=== PATIENT | female | born 1945 | race Caucasian/White ===

== ENCOUNTER 2019-05-03 18:01 | Inpatient (IN) | payer MEDICARE, OTHER ==
[~2019-05-03] VITALS: Ht 152.4 cm; Wt 102.1 kg
[2019-05-03] MEDS ORDERED: OXYB5TAB16 PO (18:18)
[2019-05-03] MEDS ORDERED: SIMV-46 PO (18:18)
[2019-05-03] MEDS ORDERED: METO-357 PO (18:18)
[2019-05-03] MEDS ORDERED: ARIP5TAB10 PO (18:18)
[2019-05-03] MEDS ORDERED: ROPI1TAB4 PO (18:18)
[2019-05-03] MEDS ORDERED: QUET50TA PO (18:18)
[2019-05-03] MEDS ORDERED: DULO30CA2 PO (18:18)
[2019-05-03] MEDS ORDERED: LISI-603 PO (18:18)
[2019-05-03] MEDS ORDERED: FLUT16SP NS (18:18)
[2019-05-03] MEDS ORDERED: HYDR25TA4 PO (18:18)
[2019-05-03] MEDS ORDERED: DIVA250T47 PO (18:18)
--- NOTE | 2019-05-03 18:26 | NUR ---
PATIENT WAS SEEN BY MD. SHE IS SITTING UP EATING DINNER. SUICIDE PRECAUTIONS INITIATED.
--- NOTE | 2019-05-03 19:14 | NUR ---
HAND OFF REPORT GIVEN TO CLIARE DUQUE
[2019-05-03 20:02] VITALS: BP 161/81
--- NOTE | 2019-05-03 20:02 | NUR ---
TRANSPORTED TO MHU VIA GURNY WITH NO DISTRESS NOTED.
[2019-05-03] MEDS ORDERED: MAG HYDROX/AL HYDROX/SIMETH 30 ML LIQUID UDC PO PRN (20:15)
[2019-05-03] MEDS ORDERED: MAGNESIUM HYDROXIDE 30 ML LIQUID UDC PO PRN (20:15)
[2019-05-03] MEDS: ZOLPIDEM 5 MG TABLET PO PRN (21:19)
--- NOTE | 2019-05-03 21:30 | NUR ---
GPS: Admitted to unit earlier a 73 yr.old female who was medically cleared in our E.R. in stable condition. Pt.is on a 72 hour hold for DTS. Pt.ingested 30 pills,cut her left wrist superficially called suicide hotline ,per hold. Pt.is alert/oriented x3,sad,depressed,feels hopeless but denies wanting to hurt self again. Contracts for safety while in the hosp. Pt. states she has multiple inpatient psych.admissions before. Unable to identify stressors when asked. Skin assessment/personal belongings list completed. Pt's advisement/pt's handbook given. Unit rules explained. /IGNACIO Srinivasan made aware of pt's admission to the unit. Safety emphasized.Assisted in the shower room and given Ambien 5mg for sleep as requested by pt. Meghan Hale(sister) informed of pt.s admission to the unit/hosp. Will continue to monitor behavior.
[2019-05-04 07:30] VITALS: BP 205/98
[2019-05-04] MEDS: LISINOPRIL 20 MG TABLET PO SCH (07:40)
[2019-05-04] MEDS: METOPROLOL SUCCINATE XL 50 MG TAB.SR.24H PO SCH (07:41)
[2019-05-04] MEDS: ropiniROLE 1 MG TABLET PO SCH ×3 (09:32→17:00)
[2019-05-04] MEDS: FLUTICASONE PROP NASAL SPRAY 16 GM BOTTLE NS SCH (09:33)
[2019-05-04] MEDS: HYDROCHLOROTHIAZIDE 25 MG TABLET PO SCH (09:33)
[2019-05-04] MEDS: OXYBUTYNIN CHLORIDE 5 MG TABLET PO SCH ×2 (09:33→17:00)
[2019-05-04] MEDS: ACETAMINOPHEN 325 MG TABLET PO PRN (10:10)
--- NOTE | 2019-05-04 10:40 | NUR ---
Social Work Note/Initial Discharge Planning: Patient currently resides at [address] [place] [address]; ([phone]) alone. Patient would like to be discharged home upon discharge. SW will work with the pt and the MD regarding appropriate discharge planning. log chain worker will form a safe and proper discharge.
--- NOTE | 2019-05-04 10:48 | NUR ---
Social Work Note/Family Contact: liner worker spoke with patients sister Geoffrey ([phone]) who stated that she is the POA. Per Geoffrey, she faxed documentation and this press writer filed documentation. liner worker discussed patients discharge plan and treatment plan. Per Geoffrey, she is unsure if she wants patient to go back home. This press writer will work with the doctor to provide a safe and proper discharge plan for patient.
--- NOTE | 2019-05-04 11:02 | NUR ---
Social Work Note/Substance Abuse Intervention: Patient was provided with a brief substance abuse intervention and referred to [facility] , [facility] , and [facility] .
--- NOTE | 2019-05-04 11:57 | NUR ---
Gps/Candle Extrusion Machine Operator- Dr Cao in to see , was informed patient had elevated blood pressure, latest checked was 179/86 HR 72, and had complained of headache, prn was given. Will review medications .
[2019-05-04 15:00] VITALS: BP 154/59
--- NOTE | 2019-05-04 15:35 | NUR ---
Gps/Alarm Signaler- Ambulates around with front wheel walker , claimed she uses front wheel walker at home. Noted patient ambulates around tends to lean forward when walker. Claimed adequate relief from h/a
--- NOTE | 2019-05-04 15:50 | NUR ---
Gps/Envelope Stamping Machine Operator- Called rapid response ,patient found in the activity room by INTERMODAL TRUCK DRIVER hunched back leaning on her front wheel walker, claimed she's very dizziy,unable to walk, assisted to concepcion-chair. B/P 166/86-HR 78, temp. 98.5, resp. 18 ,denies pain. Blood sugar was checked 84. Called [facility], Dr Cao was paged, awaiting for return call. Rapid Response team responded. Kept patient by the Nurses station for close monitoring.
[2019-05-04 16:00] VITALS: BP 166/86
--- NOTE | 2019-05-04 16:15 | NUR ---
Gps/Nurse Office- As per Rapid reponse EKG was ordered
--- NOTE | 2019-05-04 16:24 | NUR ---
Gps/Fence Builder- Dr Cao returned call, informed of the dizziiness episode, informed of blood pressure and rest of her vital signs, no orders received, just observed and monitor patient for now.
--- NOTE | 2019-05-04 16:34 | NUR ---
Gps/Boiler Operators Supervisor- Dr Rivera was in to see patient was informed of the Rapid response call .
[2019-05-04 17:31] VITALS: BP 142/81
[2019-05-04] MEDS: DULOXETINE 30 MG CAPSULE.DR PO SCH (19:35)
[2019-05-04 20:08] VITALS: BP 125/80
--- NOTE | 2019-05-04 20:10 | NUR ---
Received patient in bed, calm and cooperative, patient was having a conversation with peer. Patient denies SI/HI/AVH. Med compliant, no sign or symptom of resp. distress. no indication of pain or discomfort.
[2019-05-04] MEDS: SIMVASTATIN 20 MG TABLET PO SCH (20:22)
[2019-05-04] MEDS: DIVALPROEX ER 250 MG TAB.SR.24H PO SCH (20:22)
[2019-05-04] MEDS: ARIPIPRAZOLE 5 MG TABLET PO SCH (20:22)
[2019-05-04] MEDS ORDERED: DIVALPROEX ER 500 MG TAB.SR.24H PO SCH (21:00)
[2019-05-04] MEDS ORDERED: DIVALPROEX ER 250 MG TAB.SR.24H PO SCH ×2 (21:00)
--- NOTE | 2019-05-05 00:35 | NUR ---
PATIENT REQUESTED SLEEPING MEDS. GAVE AMBIEN 5 MG. PRN FOR INSOMNIA. WILL REASSESS PATIENT.
[2019-05-05] MEDS: ZOLPIDEM 5 MG TABLET PO PRN ×2 (00:37→23:09)
[2019-05-05] MEDS: ACETAMINOPHEN 325 MG TABLET PO PRN ×2 (02:11→23:09)
[2019-05-05 07:30] VITALS: BP 141/58
[2019-05-05] MEDS: HYDROCHLOROTHIAZIDE 25 MG TABLET PO SCH (08:30)
[2019-05-05] MEDS: DULOXETINE 30 MG CAPSULE.DR PO SCH (08:30)
[2019-05-05] MEDS: ropiniROLE 1 MG TABLET PO SCH ×3 (08:30→16:53)
[2019-05-05] MEDS: FLUTICASONE PROP NASAL SPRAY 16 GM BOTTLE NS SCH (08:31)
[2019-05-05] MEDS: LISINOPRIL 20 MG TABLET PO SCH (08:31)
[2019-05-05] MEDS: OXYBUTYNIN CHLORIDE 5 MG TABLET PO SCH ×2 (08:32→16:53)
--- NOTE | 2019-05-05 08:38 | NUR ---
Social Work Note/Family Contact: This sba underwriter received a phone call from David ([id number] to patient) and stated that he faxed the POA documentation, this sba underwriter called to confirm that it has been received.
[2019-05-05] MEDS: METOPROLOL SUCCINATE XL 50 MG TAB.SR.24H PO SCH (09:24)
--- NOTE | 2019-05-05 15:03 | NUR ---
Gps/Orthopedic Shoes Salesperson- Dr Cao in to see patient reviewed vital signs, and medications . No new orders. Showered self after set up.Deneis any discomfort, no dizziness noted.
[2019-05-05 16:55] VITALS: BP 143/68
--- NOTE | 2019-05-05 17:47 | NUR ---
Gps/Programmer Analyst- Patient was able to talk to her Sister Corie . Ambulates to the bathroom with front wheel walker , contienent of bowels and bladder. Redness to coccygeal area as well as abdominal folds. Z-guard cream was ordered. Kept skin clean and dry.Encouraged good hygiene
[2019-05-05] MEDS: DIVALPROEX ER 250 MG TAB.SR.24H PO SCH (20:17)
[2019-05-05] MEDS: ARIPIPRAZOLE 5 MG TABLET PO SCH (20:18)
[2019-05-05] MEDS: Z GUARD REMEDY PASTE 57 GM TUBE TOP SCH (20:18)
[2019-05-05] MEDS: SIMVASTATIN 20 MG TABLET PO SCH (20:18)
[2019-05-05 20:34] VITALS: BP 157/79
--- NOTE | 2019-05-05 22:20 | NUR ---
received to care, lying in bed initially, pleasant upon approach. denies SI, or any desire to harm self. compliant with medications and staff direction. she watched tv in the activity room for a while. no interactions noted with peers. as of 2199, she is lying in bed. no distress noted. willl continue to monitor closely.
--- NOTE | 2019-05-05 23:09 | NUR ---
PRN ambien, given at this time, for insomnia.
--- NOTE | 2019-05-05 23:50 | NUR ---
appears to be asleep. no distress noted.
--- NOTE | 2019-05-06 06:31 | NUR ---
slept 7.25 hours total. continues to sleep. no distress noted.
[2019-05-06 07:46] VITALS: BP 136/58
[2019-05-06] MEDS: FLUTICASONE PROP NASAL SPRAY 16 GM BOTTLE NS SCH (08:24)
[2019-05-06] MEDS: ropiniROLE 1 MG TABLET PO SCH ×3 (08:25→16:24)
[2019-05-06] MEDS: DULOXETINE 30 MG CAPSULE.DR PO SCH (08:25)
[2019-05-06] MEDS: METOPROLOL SUCCINATE XL 50 MG TAB.SR.24H PO SCH (08:25)
[2019-05-06] MEDS: HYDROCHLOROTHIAZIDE 25 MG TABLET PO SCH (08:26)
[2019-05-06] MEDS: OXYBUTYNIN CHLORIDE 5 MG TABLET PO SCH ×2 (08:27→16:24)
[2019-05-06] MEDS: LISINOPRIL 20 MG TABLET PO SCH (08:27)
[2019-05-06] MEDS: Z GUARD REMEDY PASTE 57 GM TUBE TOP SCH ×2 (08:27→20:43)
[2019-05-06 16:50] VITALS: BP 142/54
[2019-05-06] MEDS: ACETAMINOPHEN 325 MG TABLET PO PRN (18:40)
[2019-05-06] MEDS: CLONAZEPAM 0.5 MG TABLET PO PRN (18:40)
--- NOTE | 2019-05-06 18:40 | NUR ---
PT NOTED TO BE AMBULATING UNIT HALLWAY WITH FWW, THEN STATING SHE WAS HAVING VERTIGO EPISODES AND HEADACHES. STAFF ASSISTED TO FLOOR, THEN ASSISTED TO CHAIR. V/S ARE FOLLOWS: 176/62, 114, 98.3, 20, 96%. WANDY Oliva NP CALLED AND NOTIFIED. ORDERED FOR LABS AND MECLIZINE, BUT NO ANTIHYPERTENSIVE.
--- NOTE | 2019-05-06 18:59 | NUR ---
GPS: Nursing Notes: B/P Recheck: Patient B/P at this time: 158/105, 104, Meclizine medication pending verification from pharmacy, to endorse to incoming shift, continue to monitor patient, continue with treatment plan.
[2019-05-06 19:25] LABS: BASOPHILS # (AUTO) 0.1 K/uL (0.0-8.0); BASOPHILS % (AUTO) 0.7 % (0.0-2.0); EOSINOPHILS # (AUTO) 0.3 K/uL (0.0-0.7); EOSINOPHILS % (AUTO) 2.5 % (0.0-7.0); HEMATOCRIT 33.9 % (31.2-41.9); HEMOGLOBIN 11.2 g/dL (10.9-14.3); LYMPHOCYTES # (AUTO) 2.1 K/uL (20.0-40.0); LYMPHOCYTES % (AUTO) 20.1 % (20.5-51.5); MEAN CORPUSCULAR HEMOGLOBIN 28.7 uug (24.7-32.8); MEAN CORPUSCULAR HGB CONC 33 g/dL (32.3-35.6); MEAN CORPUSCULAR VOLUME 86.6 fL (75.5-95.3); MONOCYTES # (AUTO) 0.6 K/uL (2.0-10.0); MONOCYTES % (AUTO) 5.9 % (0.0-11.0); NEUTROPHILS # (AUTO) 7.4 K/uL (1.8-8.9); NEUTROPHILS % (AUTO) 70.8 % (38.5-71.5); PLATELET COUNT (AUTO) 161 K/uL (179-408); RED BLOOD CELL COUNT(AUTO) 3.91 MIL/uL (3.63-4.92); WHITE BLOOD COUNT (AUTO) 10.4 K/uL (3.8-11.8)
[2019-05-06 19:31] LABS: CARBON DIOXIDE 22 mmol/L (21-32); CHLORIDE 99 mmol/L (98-107); CREATININE 1.7 mg/dL (0.6-1.3); GLUCOSE 155 mg/dL (74-106); POTASSIUM 4.3 mmol/L (3.5-5.1); UREA NITROGEN, BLOOD 46 mg/dL (7-18)
[2019-05-06 19:54] VITALS: BP 138/77
[2019-05-06] MEDS ORDERED: MECLIZINE HCL 25 MG TABLET ONE (20:00)
[2019-05-06] MEDS: MECLIZINE HCL 25 MG TABLET PO SCH (20:01)
[2019-05-06] MEDS: SIMVASTATIN 20 MG TABLET PO SCH (20:02)
[2019-05-06] MEDS: ARIPIPRAZOLE 5 MG TABLET PO SCH (20:02)
[2019-05-06] MEDS: DIVALPROEX ER 250 MG TAB.SR.24H PO SCH (20:03)
--- NOTE | 2019-05-07 05:45 | NUR ---
GPS: Remain calm and cooperative. no agitation noted. no c/o dizziness through the night. slept 10 hours total. continues to sleep. no distress noted.
[2019-05-07 07:37] VITALS: BP 183/71
[2019-05-07] MEDS: ACETAMINOPHEN 325 MG TABLET PO PRN ×2 (07:38→20:21)
[2019-05-07] MEDS: CLONAZEPAM 0.5 MG TABLET PO PRN ×2 (07:38→12:37)
[2019-05-07] MEDS: FLUTICASONE PROP NASAL SPRAY 16 GM BOTTLE NS SCH (08:21)
[2019-05-07] MEDS: METOPROLOL SUCCINATE XL 50 MG TAB.SR.24H PO SCH (08:22)
[2019-05-07] MEDS: HYDROCHLOROTHIAZIDE 25 MG TABLET PO SCH (08:22)
[2019-05-07] MEDS: DULOXETINE 30 MG CAPSULE.DR PO SCH (08:22)
[2019-05-07] MEDS: OXYBUTYNIN CHLORIDE 5 MG TABLET PO SCH ×2 (08:22→16:10)
[2019-05-07] MEDS: ropiniROLE 1 MG TABLET PO SCH ×3 (08:22→16:10)
[2019-05-07] MEDS: LISINOPRIL 20 MG TABLET PO SCH (08:23)
[2019-05-07] MEDS: Z GUARD REMEDY PASTE 57 GM TUBE TOP SCH ×2 (08:24→20:21)
[2019-05-07] MEDS: MECLIZINE HCL 25 MG TABLET PO SCH (10:13)
[2019-05-07 10:50] VITALS: BP 169/90
[2019-05-07] MEDS: CLONIDINE HCL 0.1 MG TABLET PO PRN (12:44)
[2019-05-07 16:39] VITALS: BP 154/92
[2019-05-07 19:50] VITALS: BP 179/87
[2019-05-07] MEDS: SIMVASTATIN 20 MG TABLET PO SCH (20:15)
[2019-05-07] MEDS: DIVALPROEX ER 250 MG TAB.SR.24H PO SCH (20:15)
[2019-05-07] MEDS: ARIPIPRAZOLE 5 MG TABLET PO SCH (20:15)
[2019-05-07 20:22] VITALS: BP 140/68
[2019-05-08 00:17] LABS: *BILIRUBIN,URIN NEGATIVE (NEGATIVE); *CLARITY,URINE CLEAR (CLEAR); *COLOR,URINE YELLOW (YELLOW); *KETONES,URINE NEGATIVE (NEGATIVE); *UROBILINOGEN,URINE 0.2 E.U./dl (NORMAL); LEUKOCYTE ESTERASE ,URINE TRACE (NEGATIVE); NITRITE, URINE NEGATIVE (NEGATIVE); UGLUCOSE NEGATIVE (NEGATIVE)
[2019-05-08 00:23] LABS: *BLOOD, URINE TRACE (NEGATIVE)
[2019-05-08 00:48] LABS: BACTERIA,URINE MANY /HPF (NONE SEEN); RBC,URINE 0-3 /HPF (0-3); SQUAMOUS EPITHELIAL CELL,UR MODERATE /HPF (NONE SEEN); WBC,URINE 0-3 /HPF (0-3)
[2019-05-08] MEDS: ACETAMINOPHEN 325 MG TABLET PO PRN (05:29)
[2019-05-08 07:30] VITALS: BP 141/77
[2019-05-08] MEDS: METOPROLOL SUCCINATE XL 50 MG TAB.SR.24H PO SCH (08:45)
[2019-05-08] MEDS: MECLIZINE HCL 25 MG TABLET PO SCH (08:45)
[2019-05-08] MEDS: FLUTICASONE PROP NASAL SPRAY 16 GM BOTTLE NS SCH (08:45)
[2019-05-08] MEDS: CEphaleXIN 500 MG CAPSULE PO SCH ×2 (08:46→20:23)
[2019-05-08] MEDS: ropiniROLE 1 MG TABLET PO SCH ×3 (08:46→16:38)
[2019-05-08] MEDS: OXYBUTYNIN CHLORIDE 5 MG TABLET PO SCH ×2 (08:46→16:38)
[2019-05-08] MEDS: DULOXETINE 30 MG CAPSULE.DR PO SCH (08:46)
[2019-05-08] MEDS: HYDROCHLOROTHIAZIDE 25 MG TABLET PO SCH (08:47)
[2019-05-08] MEDS: LISINOPRIL 20 MG TABLET PO SCH (08:48)
[2019-05-08] MEDS: Z GUARD REMEDY PASTE 57 GM TUBE TOP SCH ×2 (08:55→20:35)
--- NOTE | 2019-05-08 14:49 | NUR ---
Social Work Note/UR Note: plastic worker faxed Cyndie (F: [phone]) (P: [phone]) H & P psychiatric notes and progress notes and medication.
[2019-05-08 16:00] VITALS: BP 145/83
[2019-05-08 20:19] VITALS: BP 148/80
[2019-05-08] MEDS: ARIPIPRAZOLE 5 MG TABLET PO SCH (20:23)
[2019-05-08] MEDS: SIMVASTATIN 20 MG TABLET PO SCH (20:23)
[2019-05-08] MEDS: DIVALPROEX ER 250 MG TAB.SR.24H PO SCH (20:24)
[2019-05-09] MEDS: ZOLPIDEM 5 MG TABLET PO PRN ×2 (00:19→20:58)
[2019-05-09 00:38] LABS: *BILIRUBIN,URIN NEGATIVE (NEGATIVE); *BLOOD, URINE NEGATIVE (NEGATIVE); *CLARITY,URINE CLEAR (CLEAR); *KETONES,URINE NEGATIVE (NEGATIVE); *UROBILINOGEN,URINE 0.2 E.U./dl (NORMAL); LEUKOCYTE ESTERASE ,URINE NEGATIVE (NEGATIVE); NITRITE, URINE NEGATIVE (NEGATIVE); PH,URINE 6.5 (5.0-8.0); UGLUCOSE NEGATIVE (NEGATIVE)
[2019-05-09 00:42] LABS: *COLOR,URINE STRAW (YELLOW)
[2019-05-09 00:53] LABS: *CREATININE,URINE 19.6 mg/dL (30-125); *URINE TOTAL PROTEIN RANDOM 8.2 mg/dL (<150/24HR)
[2019-05-09 06:33] LABS: BASOPHILS # (AUTO) 0.1 K/uL (0.0-8.0); BASOPHILS % (AUTO) 0.9 % (0.0-2.0); EOSINOPHILS # (AUTO) 0.3 K/uL (0.0-0.7); HEMATOCRIT 37.9 % (31.2-41.9); HEMOGLOBIN 12.3 g/dL (10.9-14.3); LYMPHOCYTES # (AUTO) 2.2 K/uL (20.0-40.0); LYMPHOCYTES % (AUTO) 23.3 % (20.5-51.5); MEAN CORPUSCULAR HEMOGLOBIN 28.8 uug (24.7-32.8); MEAN CORPUSCULAR HGB CONC 33 g/dL (32.3-35.6); MEAN CORPUSCULAR VOLUME 88.7 fL (75.5-95.3); MONOCYTES # (AUTO) 0.5 K/uL (2.0-10.0); MONOCYTES % (AUTO) 5.7 % (0.0-11.0); NEUTROPHILS # (AUTO) 6.3 K/uL (1.8-8.9); NEUTROPHILS % (AUTO) 67.1 % (38.5-71.5); PLATELET COUNT (AUTO) 158 K/uL (179-408); RED BLOOD CELL COUNT(AUTO) 4.27 MIL/uL (3.63-4.92); WHITE BLOOD COUNT (AUTO) 9.3 K/uL (3.8-11.8)
[2019-05-09 06:54] LABS: ALANINE AMINOTRANSFERASE 21 U/L (14-59); ALKALINE PHOSPHATASE 93 U/L (50-136); ASPARTATE AMINOTRANSFERASE 10 U/L (15-37); BILIRUBIN,TOTAL 0.3 mg/dL (0.2-1.0); CARBON DIOXIDE 22 mmol/L (21-32); CHLORIDE 99 mmol/L (98-107); CREATINE KINASE, TOTAL 64 U/L (26-192); CREATININE 1.4 mg/dL (0.6-1.3); GLUCOSE 97 mg/dL (74-106); MAGNESIUM 1.9 mg/dL (1.8-2.4); PHOSPHOROUS 3.5 mg/dL (2.5-4.9); POTASSIUM 4.6 mmol/L (3.5-5.1); TOTAL PROTEIN, SERUM 8.3 g/dL (6.4-8.2); UREA NITROGEN, BLOOD 44 mg/dL (7-18)
[2019-05-09 07:30] VITALS: BP 142/71
[2019-05-09] MEDS: Z GUARD REMEDY PASTE 57 GM TUBE TOP SCH ×2 (08:11→20:04)
[2019-05-09] MEDS: CEphaleXIN 500 MG CAPSULE PO SCH ×2 (08:12→20:03)
[2019-05-09] MEDS: MECLIZINE HCL 25 MG TABLET PO SCH (08:12)
[2019-05-09] MEDS: DULOXETINE 30 MG CAPSULE.DR PO SCH (08:12)
[2019-05-09] MEDS: ropiniROLE 1 MG TABLET PO SCH ×3 (08:12→16:36)
[2019-05-09] MEDS: OXYBUTYNIN CHLORIDE 5 MG TABLET PO SCH ×2 (08:12→16:36)
[2019-05-09] MEDS: FLUTICASONE PROP NASAL SPRAY 16 GM BOTTLE NS SCH (08:12)
[2019-05-09] MEDS: METOPROLOL SUCCINATE XL 50 MG TAB.SR.24H PO SCH (08:13)
[2019-05-09] MEDS: HYDROCHLOROTHIAZIDE 25 MG TABLET PO SCH (08:13)
[2019-05-09] MEDS: LISINOPRIL 20 MG TABLET PO SCH (08:13)
--- NOTE | 2019-05-09 10:18 | NUR ---
Social Work Note/Family Contact: automotive worker spoke with patients sister Geoffrey ([phone]) who stated that she is unable to provided transportation for patient because she lives far. Geoffrey, is aware of patient discharge planning.
--- NOTE | 2019-05-09 10:21 | NUR ---
Social Work Note/Coordination of Care: workers compensation consultant called 's office to schedule an appointment for patient. Per Niki, she scheduled it for May 11, 2019 at 3PM. This principal technical writer faxed ([phone]) patients H & P psychiatric notes and progress notes. workers compensation consultant also called patients psychiatrist office to make an appointment with on May 18 at 9AM. workers compensation consultant spoke with Layla who arranged appointment. workers compensation consultant faxed to Layla ([phone]) patients H & P psychiatric notes and progress notes.
--- NOTE | 2019-05-09 10:44 | NUR ---
Social Work Note/Coordination of Care: packing floor worker faxed patients clinicals to Gaby ([phone]) from [facility]. This food writer faxed patients H & P psychiatric notes and progress notes and medication.
--- NOTE | 2019-05-09 13:27 | NUR ---
Social Work Note/PC Hearing Notification: tnt powder worker contacted patients sister Geoffrey, ([phone]) and notified patients probable cause of hearing today.
[2019-05-09 15:41] VITALS: BP 149/55
--- NOTE | 2019-05-09 16:04 | NUR ---
Social Work Note/Individual Therapy: geriatric social worker met with patient for brief counseling. Patient was cooperative and pleasant upon approach. Patient stated that she is excited to go home and denies SI. geriatric social worker provided resources.
--- NOTE | 2019-05-09 16:20 | NUR ---
Social Work Note/Coordination of Care: boom stick worker spoke with Aleida from intake department from [address] [place] [address]; ([phone]) and scheduled that a nurse will evaluate patient on 05/12/2019. This screen writer also faxed ([phone]) psychiatric notes and progress notes.
[2019-05-09 20:00] VITALS: BP 115/45
[2019-05-09] MEDS: SIMVASTATIN 20 MG TABLET PO SCH (20:03)
[2019-05-09] MEDS: ARIPIPRAZOLE 5 MG TABLET PO SCH (20:03)
[2019-05-09] MEDS: CLONIDINE HCL 0.1 MG TABLET PO PRN (20:03)
[2019-05-09] MEDS: DIVALPROEX ER 250 MG TAB.SR.24H PO SCH (20:04)
[2019-05-09] MEDS: CLONAZEPAM 0.5 MG TABLET PO PRN (20:04)
[2019-05-10] MEDS: ACETAMINOPHEN 325 MG TABLET PO PRN (01:48)
[2019-05-10 07:30] VITALS: BP 189/71
--- NOTE | 2019-05-10 08:04 | NUR ---
Social Work Note/Firearms Report: Solar Project Manager completed and submitted a [employer] firearms report for 5150 grave disability certification. A copy of report has been placed in patient chart.
--- NOTE | 2019-05-10 08:12 | NUR ---
Social Work Note/Discharge: Patient will be discharged home to [address] [place] [address]; ([phone]) via transportation provided by [facility]; ([phone]) at 12PM. Patients sister Carol, ([phone]) is aware and agreeable to patients discharge. Upon discharge, patient appear to be calm, cooperative and happy to be going home. Patient presents alert and oriented x3. Patient denies suicidal and homicidal ideation. Patient will follow up with Dr. Riggs (line puller) at [place] [address]; ([phone]) on May 11 at 3PM and patient will be following up with Dr. Scot Oliver at [address] [place] [address], [facility]; ([phone]) on May 18 at 9AM and patient will discuss smoking cessation and address substance abuse dependency. contact worker spoke to Aleida ([phone]) scheduled [place] [address]; ([phone]) and a nurse will evaluate patient on 05/12/2019. Patient was provided with a brief substance abuse intervention and referred to [facility] , [facility] , and [facility] . Patient was provided with outpatient mental health resources to [facility] Crisis Line , and the National Suicide Prevention Lifeline . Patient presented with euthymic mood and congruent affect. Addendum: 05/10/19 at 0816 by TRACIE KNOTT Patient will be discharged home to [address] [place] [address], [place] [address]; ([phone]) via transportation provided by [facility]; ([phone]) at 12PM.
[2019-05-10] MEDS: FLUTICASONE PROP NASAL SPRAY 16 GM BOTTLE NS SCH (08:16)
[2019-05-10] MEDS: CEphaleXIN 500 MG CAPSULE PO SCH (08:17)
[2019-05-10] MEDS: LISINOPRIL 20 MG TABLET PO SCH (08:17)
[2019-05-10] MEDS: DULOXETINE 30 MG CAPSULE.DR PO SCH (08:17)
[2019-05-10] MEDS: ropiniROLE 1 MG TABLET PO SCH ×2 (08:17→12:17)
[2019-05-10] MEDS: MECLIZINE HCL 25 MG TABLET PO SCH (08:18)
[2019-05-10] MEDS: HYDROCHLOROTHIAZIDE 25 MG TABLET PO SCH (08:18)
[2019-05-10 08:19] VITALS: BP 189/71
[2019-05-10] MEDS: Z GUARD REMEDY PASTE 57 GM TUBE TOP SCH (08:19)
[2019-05-10] MEDS: METOPROLOL SUCCINATE XL 50 MG TAB.SR.24H PO SCH (08:19)
[2019-05-10] MEDS: OXYBUTYNIN CHLORIDE 5 MG TABLET PO SCH (08:19)
--- NOTE | 2019-05-10 13:22 | NUR ---
Patient d/c d home via transportation service. Patient awake and alert, verbalized understanding of discharge instructions and follow up appointments. No distress noted.
== END 2019-05-10 12:45 | disposition home health service (06) | DRG 885 ==
LOC: ER 18:01 → GPS 19:52
PROVIDERS: ADMIT Psychiatry & Neurology Psychiatry
DX: F31.5 Bipolar disorder, current episode depressed, severe, with psychotic features (principal); N17.9 Acute kidney failure, unspecified; N18.9 Chronic kidney disease, unspecified; N39.0 Urinary tract infection, site not specified; E87.1 Hypo-osmolality and hyponatremia; K50.90 Crohn's disease, unspecified, without complications; T42.8X2D Poisoning by antiparkinsonism drugs and other central muscle-tone depressants, intentional self-harm, subsequent encounter; Z91.030 Bee allergy status; G43.909 Migraine, unspecified, not intractable, without status migrainosus; I12.9 Hypertensive chronic kidney disease with stage 1 through stage 4 chronic kidney disease, or unspecified chronic kidney disease; I71.9 Aortic aneurysm of unspecified site, without rupture; G47.00 Insomnia, unspecified; F12.10 Cannabis abuse, uncomplicated; E66.01 Morbid (severe) obesity due to excess calories; Z87.442 Personal history of urinary calculi; Z79.899 Other long term (current) drug therapy; N27.0 Small kidney, unilateral
CPT/HCPCS: 36415; 83735; 83970; 84100; 84156; 84300; 85025; 87086; 93005; 93307; 93880; A4663; J3535; J8597

== ENCOUNTER 2020-01-01 20:34 | Inpatient (IN) | payer MEDICARE, OTHER ==
[~2020-01-01] VITALS: Ht 152.4 cm; Wt 104.8 kg
[~2020-01-01 20:34] MED LIST: FLUT16SP NS; HYDR25TA4 PO; LISI-603 PO; METO-357 PO; OXYB5TAB16 PO; ROPI1TAB6 PO; SIMV-46 PO
--- NOTE | 2020-01-01 20:45 | NUR ---
Sayra SIMMS by private transporter from [facility] ER on 5150 hold for DTS. Patient upon arrival A/Ox3. Denies SI at this time. No distress noted.
[2020-01-01] MEDS ORDERED: DIVA500T54 PO (20:51)
[2020-01-01] MEDS ORDERED: ARIP5TAB59 PO (20:51)
[2020-01-01] MEDS ORDERED: DICL100G16 TP (20:51)
[2020-01-01] MEDS ORDERED: QUET200T PO (20:51)
[2020-01-01] MEDS ORDERED: EPIN0.3P3 IJ (20:51)
[2020-01-01] MEDS ORDERED: OLOP5DRO EACHEYE (20:51)
--- NOTE | 2020-01-01 21:18 | NUR ---
Medically cleared by Dr Whitaker.
--- NOTE | 2020-01-01 22:20 | NUR ---
Transfered to MHU via wheelchair with no distress noted.
[2020-01-01 22:30] VITALS: BP 143/64
[2020-01-01] MEDS ORDERED: MAGNESIUM HYDROXIDE 30 ML LIQUID UDC PO PRN (23:00)
[2020-01-01] MEDS ORDERED: MAG HYDROX/AL HYDROX/SIMETH 30 ML LIQUID UDC PO PRN (23:00)
[2020-01-01] MEDS ORDERED: BLOOD SUGAR DIAGNOSTIC 1 EACH STRIP VI ONE (23:00)
[2020-01-01] MEDS ORDERED: CLONAZEPAM 0.5 MG TABLET PO SCH (23:00)
[2020-01-01] MEDS: TEMAZEPAM 7.5 MG CAPSULE PO PRN (23:26)
--- NOTE | 2020-01-02 04:12 | NUR ---
ADMITTED A 74Y/O FEMALE ON A 5150 HOLD WITH DTS AT 22:30. DR HOPKINS PSYCHIATRIST AND BOBBY COMPUTER HELP DESK REPRESENTATIVE.PRIOR TO ADMISSION SHE LIVES AT HOME WITH HER CAT AND SLIT HER WRIST AND CALLED 911. UPON FACE TO FACE INTERACTION SHE APPEARED DEPRESSED AND DISHEVELED. SAID THE "WORLD FELT FLAT AND NOTHING SEEMED RIGHT WITH EQUAL AMOUNTS OF FRUSTRATION" I JUST WANTED TO FEEL SOMETHING BUT NOT TO ".NOTED SUPERFICIAL LACERATION ON LEFT WRIST WHICH HAD STERI STRIPS APPLIED. SHE DENIED PAIN.SHE HOWEVER ADMITTED TO HAVING PROBLEM SLEEPING.SHE WAS LATER GIVEN TAB RESTORIL TO AID HER SLEEP. ADVISEMENT AND HANDBOOK WAS PROVIDED.VISUAL CHECKS MADE ON HER FOR SAFETY. WILL CONTINUE TO MONITOR.
--- NOTE | 2020-01-02 06:40 | NUR ---
SHE SLEPT FOR 6:00 HOURS.
[2020-01-02 07:30] VITALS: BP 159/91
--- NOTE | 2020-01-02 07:30 | NUR ---
GPS: RECEIVED PATIENT AOX3, PATIENT CALM COOPERATIVE, MINIMIZES HER SYMPTOMS, PATIENT APPEAR TO HAVE SUPERFICIAL WOUND ON HER LEFT WRIST, PATIENT VERBALIZES THAT "I HAD A ROUGH DAY", PATIENT DENIES ANY SI AT THIS TIME AND REGRET DOING THE PREVIOUS ATTEMPT THAT'S WHY SHE CALLED 911, AT 2PM PATIENT WAS EVALUATED BY DR. HOPKINS AND BEEN COOPERATIVE WITH THE CONVERSATION, PATIENT AGREES AND SIGNED CONSENT FOR HER MEDICATION, SEEN ATTENDING THE GROUP ACTIVITY , WILL CONTINUE MONITOR
[2020-01-02] MEDS: ACETAMINOPHEN 325 MG TABLET PO PRN ×2 (10:44→21:42)
--- NOTE | 2020-01-02 10:44 | NUR ---
TRACIE Initial Discharge Plan: Patient currently resides at [address] [place] [address];([phone]) alone. Patient would like to be discharged home upon discharge. This content writer contacted patient's sister Geoffrey ([phone]) stated she is the DPOA and will send this content writer documents. Geoffrey stated she would want patient to return back home upon discharge. extrusion utility worker will work with the patient and the MD regarding appropriate discharge planning. extrusion utility worker will form a safe and proper discharge.
--- NOTE | 2020-01-02 10:45 | NUR ---
SW Family Contact: This procedure writer contacted patient's sister Geoffrey ([phone]) stated she is the DPOA and will send this procedure writer documents. Geoffrey stated she would want patient to return back home upon discharge. This procedure writer discussed treatment plan and discharge plan.
--- NOTE | 2020-01-02 10:46 | NUR ---
Firearms Report: Tinner Helper completed and submitted a [employer] firearms report for 5150 grave disability certification. A copy of report has been placed in patient chart.
--- NOTE | 2020-01-02 13:23 | NUR ---
SW Note: Patient's sister Geoffrey ([phone]) faxed this display card writer DPOA documents. This display card writer placed in the chart. Sister Geoffrey is DPOA.
[2020-01-02 16:00] VITALS: BP 200/75
[2020-01-02] MEDS: DULOXETINE 30 MG CAPSULE.DR PO SCH (16:47)
--- NOTE | 2020-01-02 16:58 | NUR ---
called and left message to Dr. Peck follow up on med recon and BP 182/109, waiting for reply
[2020-01-02] MEDS: METOPROLOL SUCCINATE XL 50 MG TAB.SR.24H PO SCH (18:28)
[2020-01-02] MEDS: OXYBUTYNIN CHLORIDE 5 MG TABLET PO SCH (18:28)
[2020-01-02] MEDS: EZETIMIBE 10 MG TABLET PO SCH (20:09)
[2020-01-02] MEDS: DIVALPROEX 500 MG TABLET.DR PO SCH (20:09)
[2020-01-02] MEDS: ATORVASTATIN 20 MG TABLET PO SCH (20:09)
[2020-01-02 20:34] VITALS: BP 145/89
[2020-01-02] MEDS ORDERED: SIMVASTATIN 20 MG TABLET PO SCH (21:00)
[2020-01-02] MEDS: ARIPIPRAZOLE 5 MG TABLET PO SCH (21:00)
[2020-01-02] MEDS: TEMAZEPAM 7.5 MG CAPSULE PO PRN (21:42)
[2020-01-03 07:30] VITALS: BP 124/55
--- NOTE | 2020-01-03 07:30 | NUR ---
GPS: RECEIVED PATIENT aoX3-4, PATIENT IN GOOD MOOD DENIES SI AND HI, COMPLIANT WITH MEDICATION, PATIENT ABLE TO DO ADLS , ASSISTED WITH HER BREAKFAST A, PATIENT DENIES ANY PAIN, NO DISTRESS AT THIS TIME
[2020-01-03 08:04] LABS: BASOPHILS % (AUTO) 0.6 % (0.0-2.0); EOSINOPHILS # (AUTO) 0.3 K/uL (0.0-0.7); EOSINOPHILS % (AUTO) 3.8 % (0.0-7.0); HEMATOCRIT 31.1 % (31.2-41.9); HEMOGLOBIN 10.4 g/dL (10.9-14.3); LYMPHOCYTES # (AUTO) 1.9 K/uL (20.0-40.0); LYMPHOCYTES % (AUTO) 26.6 % (20.5-51.5); MEAN CORPUSCULAR HEMOGLOBIN 31.1 uug (24.7-32.8); MEAN CORPUSCULAR HGB CONC 34 g/dL (32.3-35.6); MEAN CORPUSCULAR VOLUME 92.7 fL (75.5-95.3); MONOCYTES # (AUTO) 0.6 K/uL (2.0-10.0); NEUTROPHILS # (AUTO) 4.3 K/uL (1.8-8.9); PLATELET COUNT (AUTO) 165 K/uL (179-408); RED BLOOD CELL COUNT(AUTO) 3.35 MIL/uL (3.63-4.92); WHITE BLOOD COUNT (AUTO) 7.2 K/uL (3.8-11.8)
[2020-01-03] MEDS: OLOPATADINE 0.1% OPHT DROP 5 ML BOTTLE EACHEYE SCH ×2 (08:37→16:13)
[2020-01-03] MEDS: DIVALPROEX 500 MG TABLET.DR PO SCH ×2 (08:37→21:00)
[2020-01-03] MEDS: DULOXETINE 30 MG CAPSULE.DR PO SCH ×2 (08:37→16:13)
[2020-01-03] MEDS: HYDROCHLOROTHIAZIDE 25 MG TABLET PO SCH (08:38)
[2020-01-03] MEDS: LISINOPRIL 20 MG TABLET PO SCH (08:38)
[2020-01-03] MEDS: OXYBUTYNIN CHLORIDE 5 MG TABLET PO SCH ×2 (08:38→16:15)
[2020-01-03] MEDS: FLUTICASONE PROP NASAL SPRAY 16 GM BOTTLE NS SCH (08:39)
[2020-01-03] MEDS: METOPROLOL SUCCINATE XL 50 MG TAB.SR.24H PO SCH (08:39)
[2020-01-03 08:47] LABS: ALANINE AMINOTRANSFERASE 15 U/L (14-59); ALKALINE PHOSPHATASE 73 U/L (50-136); ASPARTATE AMINOTRANSFERASE 10 U/L (15-37); BILIRUBIN,TOTAL 0.4 mg/dL (0.2-1.0); CARBON DIOXIDE 26 mmol/L (21-32); CHLORIDE 105 mmol/L (98-107); CREATININE 1.6 mg/dL (0.6-1.3); GLUCOSE 103 mg/dL (74-106); MAGNESIUM 1.6 mg/dL (1.8-2.4); PHOSPHOROUS 3.4 mg/dL (2.5-4.9); POTASSIUM 4.3 mmol/L (3.5-5.1); TOTAL PROTEIN, SERUM 6.7 g/dL (6.4-8.2); UREA NITROGEN, BLOOD 30 mg/dL (7-18)
[2020-01-03 09:09] LABS: THYROID STIMULATING HORMONE 2.446 mIU/mL (0.358-3.740)
[2020-01-03] MEDS ORDERED: MAGNESIUM OXIDE 400 MG TABLET PO ONE (10:15)
--- NOTE | 2020-01-03 14:46 | NUR ---
TRACIE Individual Therapy: SW met with patient for brief counseling. Pt appeared to be in a low mood. Pt stated that she feels tired and wants to rest. Pt denies SI and stated that "I did not want to , I didn't cut my wrist because I wanted to , I did it because I wanted to feel pain" and stated "I was just having a bad day". This com writer educated patient and educated pt on how to be safe. This com writer actively listened and provided emotional support.
--- NOTE | 2020-01-03 15:51 | NUR ---
SEEN AND EVALUATED BY DR. HOPKINS, WITH 5250 HOLD WAS ESTABLISHED, PATIENT AWARE AND AGREED ON, PATIENT BEEN WALKING IN HALLWAY, VERBALIZES DIZZINESS, ASSISTED TO GO BACK TO ROOM, BP WAS WNL, INSTRUCTED TO SATY IN ROOM FOR A WHILE UNTIL FEEL BETTER, MD AWARE,
[2020-01-03 16:00] VITALS: BP 124/61
[2020-01-03] MEDS: ropiniROLE 1 MG TABLET PO SCH (16:13)
[2020-01-03] MEDS: ACETAMINOPHEN 325 MG TABLET PO PRN (16:13)
[2020-01-03 16:48] LABS: BAND % (MANUAL) 1 % (0-10); EOSINOPHILS % (MANUAL) 2 % (0-8); LYMPHOCYTES % (MANUAL) 28 % (20-40); METAMYELOCYTES % 1 % (0-1); MONOCYTES % (MANUAL) 7 % (2-10); MYELOCYTES % 1 % (0-0); NEUTROPHILS % (MANUAL) 60 % (42-75)
--- NOTE | 2020-01-03 17:54 | NUR ---
FALL RISK PRECAUTION OBSERVED THE WHOLE DAY, ENSURING PATIENT SAFETY, NO UNTOWARD DISTRESS NOTED
[2020-01-03 20:11] VITALS: BP 154/57
[2020-01-03] MEDS: EZETIMIBE 10 MG TABLET PO SCH (21:00)
[2020-01-03] MEDS: ARIPIPRAZOLE 5 MG TABLET PO SCH (21:00)
[2020-01-03] MEDS: ATORVASTATIN 20 MG TABLET PO SCH (21:00)
[2020-01-04] MEDS: ACETAMINOPHEN 325 MG TABLET PO PRN (01:48)
[2020-01-04 07:30] VITALS: BP 144/31
[2020-01-04] MEDS: OLOPATADINE 0.1% OPHT DROP 5 ML BOTTLE EACHEYE SCH ×2 (09:43→17:00)
[2020-01-04] MEDS: OXYBUTYNIN CHLORIDE 5 MG TABLET PO SCH ×2 (09:43→17:06)
[2020-01-04] MEDS: DULOXETINE 30 MG CAPSULE.DR PO SCH ×2 (09:45→17:06)
[2020-01-04] MEDS: ropiniROLE 1 MG TABLET PO SCH ×3 (09:45→17:06)
[2020-01-04] MEDS: DIVALPROEX 500 MG TABLET.DR PO SCH ×2 (09:45→21:00)
[2020-01-04] MEDS: METOPROLOL SUCCINATE XL 50 MG TAB.SR.24H PO SCH (09:46)
[2020-01-04] MEDS: HYDROCHLOROTHIAZIDE 25 MG TABLET PO SCH (09:46)
[2020-01-04] MEDS: LISINOPRIL 20 MG TABLET PO SCH (09:47)
[2020-01-04] MEDS: FLUTICASONE PROP NASAL SPRAY 16 GM BOTTLE NS SCH (09:47)
[2020-01-04] MEDS: HYDROCODONE/APAP 5-325MG TABLET PO PRN (13:02)
[2020-01-04 16:00] VITALS: BP 144/84
[2020-01-04 20:35] VITALS: BP 126/69
[2020-01-04] MEDS: ATORVASTATIN 20 MG TABLET PO SCH (21:00)
[2020-01-04] MEDS: EZETIMIBE 10 MG TABLET PO SCH (21:00)
[2020-01-04] MEDS: ARIPIPRAZOLE 5 MG TABLET PO SCH (21:00)
[2020-01-05] MEDS: HYDROCODONE/APAP 5-325MG TABLET PO PRN ×2 (00:42→12:08)
[2020-01-05 07:30] VITALS: BP 153/82
[2020-01-05] MEDS: FLUTICASONE PROP NASAL SPRAY 16 GM BOTTLE NS SCH (09:46)
[2020-01-05] MEDS: DIVALPROEX 500 MG TABLET.DR PO SCH ×2 (09:47→20:01)
[2020-01-05] MEDS: OXYBUTYNIN CHLORIDE 5 MG TABLET PO SCH ×2 (09:47→18:18)
[2020-01-05] MEDS: OLOPATADINE 0.1% OPHT DROP 5 ML BOTTLE EACHEYE SCH ×2 (09:47→17:00)
[2020-01-05] MEDS: DULOXETINE 30 MG CAPSULE.DR PO SCH ×2 (09:47→18:18)
[2020-01-05] MEDS: ropiniROLE 1 MG TABLET PO SCH ×3 (09:48→18:18)
[2020-01-05] MEDS: HYDROCHLOROTHIAZIDE 25 MG TABLET PO SCH (09:48)
[2020-01-05] MEDS: METOPROLOL SUCCINATE XL 50 MG TAB.SR.24H PO SCH (09:53)
[2020-01-05] MEDS: LISINOPRIL 20 MG TABLET PO SCH (09:55)
[2020-01-05 15:48] VITALS: BP 132/57
[2020-01-05] MEDS: ATORVASTATIN 20 MG TABLET PO SCH (20:01)
[2020-01-05] MEDS: ACETAMINOPHEN 325 MG TABLET PO PRN (20:01)
[2020-01-05] MEDS: EZETIMIBE 10 MG TABLET PO SCH (20:01)
[2020-01-05] MEDS: ARIPIPRAZOLE 5 MG TABLET PO SCH (20:01)
[2020-01-05 20:56] VITALS: BP 151/71
[2020-01-05] MEDS: TEMAZEPAM 7.5 MG CAPSULE PO PRN (21:37)
[2020-01-06] MEDS: HYDROCODONE/APAP 5-325MG TABLET PO PRN ×3 (01:22→22:23)
[2020-01-06] MEDS: ACETAMINOPHEN 325 MG TABLET PO PRN ×2 (04:40→19:55)
[2020-01-06] MEDS: CLONAZEPAM 0.5 MG TABLET PO PRN ×2 (04:40→19:55)
[2020-01-06 07:30] VITALS: BP 142/60
[2020-01-06] MEDS: METOPROLOL SUCCINATE XL 50 MG TAB.SR.24H PO SCH (08:51)
[2020-01-06] MEDS: DIVALPROEX 500 MG TABLET.DR PO SCH ×2 (08:51→20:03)
[2020-01-06] MEDS: ropiniROLE 1 MG TABLET PO SCH ×3 (08:51→16:37)
[2020-01-06] MEDS: HYDROCHLOROTHIAZIDE 25 MG TABLET PO SCH (08:51)
[2020-01-06] MEDS: DULOXETINE 30 MG CAPSULE.DR PO SCH ×2 (08:51→16:37)
[2020-01-06] MEDS: LISINOPRIL 20 MG TABLET PO SCH (08:51)
[2020-01-06] MEDS: OXYBUTYNIN CHLORIDE 5 MG TABLET PO SCH ×2 (08:51→16:38)
[2020-01-06] MEDS: OLOPATADINE 0.1% OPHT DROP 5 ML BOTTLE EACHEYE SCH ×2 (08:53→16:38)
[2020-01-06] MEDS: FLUTICASONE PROP NASAL SPRAY 16 GM BOTTLE NS SCH (08:53)
--- NOTE | 2020-01-06 11:44 | NUR ---
Patient is calm, cooperative, and has appropriate interaction with staff and peers. patient is visible on the unit, but is guarded and has minimal interaction. patient denies SI/HI, denies AH/VH. patient uses wheelchair for ambulation. patient is adherent with medication, no adverse reaction noted.
[2020-01-06] MEDS ORDERED: MISCELLANEOUS MED XX PRN (12:30)
[2020-01-06 16:00] VITALS: BP 109/77
[2020-01-06] MEDS: ARIPIPRAZOLE 5 MG TABLET PO SCH (20:02)
[2020-01-06] MEDS: EZETIMIBE 10 MG TABLET PO SCH (20:02)
[2020-01-06] MEDS: ATORVASTATIN 20 MG TABLET PO SCH (20:03)
[2020-01-06 20:31] VITALS: BP 137/70
[2020-01-06] MEDS: TEMAZEPAM 7.5 MG CAPSULE PO PRN (21:16)
[2020-01-07] MEDS: CLONAZEPAM 0.5 MG TABLET PO PRN ×2 (01:56→19:47)
[2020-01-07] MEDS: ACETAMINOPHEN 325 MG TABLET PO PRN ×2 (01:56→19:47)
[2020-01-07] MEDS: HYDROCODONE/APAP 5-325MG TABLET PO PRN ×2 (06:29→16:43)
--- NOTE | 2020-01-07 06:59 | NUR ---
Received Pt sitting up in her room awake, A+Ox3. C/o 01/03 (B) leg pain. Tylenol 650mg administered at 1955 and 0156 along with Klonopin 0.5mg for anxiety. Presents with low mood and low energy. Exhibits flat affect and is isolative and withdrawn, appears depressed. Isolative, withdrawn, and seclusive to her room. Pt is guarded with personal information and gives minimal disclosure. Denies SI and verbally contracts for safety. C/o insomnia, Restoril 7.5mg administered with good effect. VS stable. Slept 8.45 hours.
[2020-01-07 07:30] VITALS: BP 197/63
[2020-01-07] MEDS: DULOXETINE 30 MG CAPSULE.DR PO SCH ×2 (08:30→16:43)
[2020-01-07] MEDS: DIVALPROEX 500 MG TABLET.DR PO SCH ×2 (08:30→20:00)
[2020-01-07] MEDS: LISINOPRIL 20 MG TABLET PO SCH (08:31)
[2020-01-07] MEDS: OLOPATADINE 0.1% OPHT DROP 5 ML BOTTLE EACHEYE SCH ×2 (08:31→16:43)
[2020-01-07] MEDS: METOPROLOL SUCCINATE XL 50 MG TAB.SR.24H PO SCH (08:31)
[2020-01-07] MEDS: HYDROCHLOROTHIAZIDE 25 MG TABLET PO SCH (08:32)
[2020-01-07] MEDS: ropiniROLE 1 MG TABLET PO SCH ×3 (08:32→16:44)
[2020-01-07] MEDS: OXYBUTYNIN CHLORIDE 5 MG TABLET PO SCH ×2 (08:32→16:44)
[2020-01-07] MEDS: FLUTICASONE PROP NASAL SPRAY 16 GM BOTTLE NS SCH (08:33)
[2020-01-07 11:30] VITALS: BP 121/58
[2020-01-07] MEDS: CHOLECALCIFEROL 1,000 UNIT TABLET PO SCH (11:51)
[2020-01-07] MEDS: AMLODIPINE 5 MG TABLET PO SCH (11:58)
[2020-01-07 15:33] VITALS: BP 123/74
--- NOTE | 2020-01-07 16:13 | NUR ---
Pt calm, cooperative, and compliant throughout shift. AAOx3 and able to make needs known. Pt assisted to participate in group and eat lunch in dining room. BP elevated this morning, reduced following morning medications, MD aware, new orders to begin new BP medication, administered and proven effective. Pt denies SI/HI/AH/VH at this time and able to CFS. Will continue to monitor for safety.
[2020-01-07] MEDS: ARIPIPRAZOLE 5 MG TABLET PO SCH (20:00)
[2020-01-07] MEDS: ATORVASTATIN 20 MG TABLET PO SCH (20:00)
[2020-01-07] MEDS: EZETIMIBE 10 MG TABLET PO SCH (20:01)
[2020-01-07 20:31] VITALS: BP 146/74
[2020-01-07] MEDS: TEMAZEPAM 7.5 MG CAPSULE PO PRN (21:00)
[2020-01-08] MEDS: HYDROCODONE/APAP 5-325MG TABLET PO PRN ×3 (01:25→18:53)
[2020-01-08] MEDS: ACETAMINOPHEN 325 MG TABLET PO PRN (02:41)
--- NOTE | 2020-01-08 06:10 | NUR ---
Pt remains anxious with chronic (B) knee pain, effectively controlled with [place] 5/325 at 0125 and Tylenol 650mg with Klonopin 0.5mg at 1947. Pt continues to be seclusive to her room, isolative and withdrawn to herself, encouraged to interact with peers. Able to make needs known. VS stable.
--- NOTE | 2020-01-08 06:13 | NUR ---
Restoril 7.5mg administered at 2100 for insomnia.
[2020-01-08 07:30] VITALS: BP 144/59
[2020-01-08] MEDS: CHOLECALCIFEROL 1,000 UNIT TABLET PO SCH (08:05)
[2020-01-08] MEDS: DULOXETINE 30 MG CAPSULE.DR PO SCH ×2 (08:05→17:03)
[2020-01-08] MEDS: DIVALPROEX 500 MG TABLET.DR PO SCH ×2 (08:05→21:13)
[2020-01-08] MEDS: METOPROLOL SUCCINATE XL 50 MG TAB.SR.24H PO SCH (08:06)
[2020-01-08] MEDS: LISINOPRIL 20 MG TABLET PO SCH (08:06)
[2020-01-08] MEDS: AMLODIPINE 5 MG TABLET PO SCH (08:07)
[2020-01-08] MEDS: OLOPATADINE 0.1% OPHT DROP 5 ML BOTTLE EACHEYE SCH ×2 (08:09→17:02)
[2020-01-08] MEDS: ropiniROLE 1 MG TABLET PO SCH ×3 (08:09→17:03)
[2020-01-08] MEDS: FLUTICASONE PROP NASAL SPRAY 16 GM BOTTLE NS SCH (08:10)
[2020-01-08] MEDS: HYDROCHLOROTHIAZIDE 25 MG TABLET PO SCH (08:10)
[2020-01-08] MEDS: OXYBUTYNIN CHLORIDE 5 MG TABLET PO SCH ×2 (08:11→17:03)
[2020-01-08 15:30] VITALS: BP 140/73
--- NOTE | 2020-01-08 18:56 | NUR ---
patient is up to W/C able to wheel self around, has been c/o lower back pain , norco 1 tab given as ordered.
[2020-01-08 20:00] VITALS: BP 118/50
[2020-01-08] MEDS: EZETIMIBE 10 MG TABLET PO SCH (21:13)
[2020-01-08] MEDS: ATORVASTATIN 20 MG TABLET PO SCH (21:13)
[2020-01-08] MEDS: ARIPIPRAZOLE 5 MG TABLET PO SCH (21:13)
[2020-01-09] MEDS: HYDROCODONE/APAP 5-325MG TABLET PO PRN ×2 (05:26→20:11)
[2020-01-09 07:30] VITALS: BP 159/68
[2020-01-09] MEDS: DULOXETINE 30 MG CAPSULE.DR PO SCH ×2 (08:18→16:19)
[2020-01-09] MEDS: OLOPATADINE 0.1% OPHT DROP 5 ML BOTTLE EACHEYE SCH ×2 (08:18→16:19)
[2020-01-09] MEDS: FLUTICASONE PROP NASAL SPRAY 16 GM BOTTLE NS SCH (08:18)
[2020-01-09] MEDS: ropiniROLE 1 MG TABLET PO SCH ×3 (08:18→16:19)
[2020-01-09] MEDS: HYDROCHLOROTHIAZIDE 25 MG TABLET PO SCH (08:19)
[2020-01-09] MEDS: LISINOPRIL 20 MG TABLET PO SCH (08:19)
[2020-01-09] MEDS: CHOLECALCIFEROL 1,000 UNIT TABLET PO SCH (08:19)
[2020-01-09] MEDS: DIVALPROEX 500 MG TABLET.DR PO SCH ×2 (08:19→20:11)
[2020-01-09] MEDS: OXYBUTYNIN CHLORIDE 5 MG TABLET PO SCH ×2 (08:20→16:19)
[2020-01-09] MEDS: AMLODIPINE 5 MG TABLET PO SCH (08:20)
[2020-01-09] MEDS: METOPROLOL SUCCINATE XL 50 MG TAB.SR.24H PO SCH (08:20)
[2020-01-09 17:05] VITALS: BP 133/59
[2020-01-09 20:05] VITALS: BP 112/43
[2020-01-09] MEDS: ARIPIPRAZOLE 5 MG TABLET PO SCH (20:11)
[2020-01-09] MEDS: EZETIMIBE 10 MG TABLET PO SCH (20:12)
[2020-01-09] MEDS: ATORVASTATIN 20 MG TABLET PO SCH (20:12)
[2020-01-10] MEDS: TEMAZEPAM 7.5 MG CAPSULE PO PRN ×2 (00:05→23:17)
[2020-01-10 07:30] VITALS: BP 134/73
[2020-01-10] MEDS: CHOLECALCIFEROL 1,000 UNIT TABLET PO SCH (08:32)
[2020-01-10] MEDS: DULOXETINE 30 MG CAPSULE.DR PO SCH ×2 (08:32→16:02)
[2020-01-10] MEDS: DIVALPROEX 500 MG TABLET.DR PO SCH ×2 (08:32→20:09)
[2020-01-10] MEDS: OXYBUTYNIN CHLORIDE 5 MG TABLET PO SCH ×2 (08:32→16:02)
[2020-01-10] MEDS: LISINOPRIL 20 MG TABLET PO SCH (08:33)
[2020-01-10] MEDS: HYDROCHLOROTHIAZIDE 25 MG TABLET PO SCH (08:33)
[2020-01-10] MEDS: METOPROLOL SUCCINATE XL 50 MG TAB.SR.24H PO SCH (08:36)
[2020-01-10] MEDS: ropiniROLE 1 MG TABLET PO SCH ×3 (08:37→16:02)
[2020-01-10] MEDS: FLUTICASONE PROP NASAL SPRAY 16 GM BOTTLE NS SCH (08:37)
[2020-01-10] MEDS: AMLODIPINE 5 MG TABLET PO SCH (08:38)
[2020-01-10] MEDS: OLOPATADINE 0.1% OPHT DROP 5 ML BOTTLE EACHEYE SCH ×2 (08:38→16:03)
[2020-01-10] MEDS: HYDROCODONE/APAP 5-325MG TABLET PO PRN ×2 (10:34→20:09)
--- NOTE | 2020-01-10 14:13 | NUR ---
PATIENT IS SITTING IN CHAIR IN THE ACTIVITY ROOM, PARTICIPATING WITH ACTIVITIES. STABLE, COMPLIANT WITH MEDICATIONS, AND CARE, NO ACUTE DISTRESS NOTED, NO AGGRESSIVE, OR COMBATIVE BEHAVIOR NOTED. Addendum: 01/10/20 at 1917 by TENNILLE CARNES RN RN patient needs assistant production editor to transfer from bed to wheelchair, and vise versa, patient is not able to transfer herself, endorsed accordingly to next shift
[2020-01-10 16:07] VITALS: BP 145/75
[2020-01-10] MEDS: ACETAMINOPHEN 325 MG TABLET PO PRN (16:54)
[2020-01-10] MEDS: ARIPIPRAZOLE 5 MG TABLET PO SCH (20:08)
[2020-01-10] MEDS: EZETIMIBE 10 MG TABLET PO SCH (20:09)
[2020-01-10] MEDS: ATORVASTATIN 20 MG TABLET PO SCH (20:10)
[2020-01-10 20:12] VITALS: BP 120/68
[2020-01-11] MEDS: HYDROCODONE/APAP 5-325MG TABLET PO PRN ×3 (04:15→21:17)
[2020-01-11 07:30] VITALS: BP 129/62
[2020-01-11] MEDS: CHOLECALCIFEROL 1,000 UNIT TABLET PO SCH (09:06)
[2020-01-11] MEDS: DIVALPROEX 500 MG TABLET.DR PO SCH ×2 (09:06→20:54)
[2020-01-11] MEDS: DULOXETINE 30 MG CAPSULE.DR PO SCH ×2 (09:06→18:10)
[2020-01-11] MEDS: AMLODIPINE 5 MG TABLET PO SCH (09:06)
[2020-01-11] MEDS: LISINOPRIL 20 MG TABLET PO SCH (09:07)
[2020-01-11] MEDS: OXYBUTYNIN CHLORIDE 5 MG TABLET PO SCH ×2 (09:08→18:10)
[2020-01-11] MEDS: HYDROCHLOROTHIAZIDE 25 MG TABLET PO SCH (09:09)
[2020-01-11] MEDS: ropiniROLE 1 MG TABLET PO SCH ×3 (09:09→18:10)
[2020-01-11] MEDS: OLOPATADINE 0.1% OPHT DROP 5 ML BOTTLE EACHEYE SCH ×2 (09:12→17:00)
[2020-01-11] MEDS: FLUTICASONE PROP NASAL SPRAY 16 GM BOTTLE NS SCH (09:12)
[2020-01-11] MEDS: METOPROLOL SUCCINATE XL 50 MG TAB.SR.24H PO SCH (09:20)
--- NOTE | 2020-01-11 11:10 | NUR ---
Family Contact: TRACIE contacted patient's sister Meghan ([phone]) and informed her that the pt will be discharged back home the following day and TRACIE will inform her of the time once it is [facility] with [facility].
--- NOTE | 2020-01-11 11:13 | NUR ---
County Contact: TRACIE called [facility] ([phone]) and spoke to the law office receptionist to schedule transportation for the pt to return to her home. TRACIE provided the pts information and was told that she will receive a call back with the time that the pt will be picked up.
--- NOTE | 2020-01-11 11:14 | NUR ---
Circus SupervisorManager Culture: SW called [facility] and was transferred to the pts continuous pillowcase cutter, Zeus Lloyd ([phone]), and left a voicemail stating that the pt will need a hospital follow up appointment. TRACIE asked for a call back to set this appointment.
--- NOTE | 2020-01-11 11:28 | NUR ---
Office Contact: TRACIE called Dr. Penn's office and scheduled an appointment for the pt on February 01 at 10:30am.
--- NOTE | 2020-01-11 13:57 | NUR ---
County Contact: Francisca Livingston called from [facility] ([phone]) and stated that the pt will be picked up at 1:30PM.
--- NOTE | 2020-01-11 13:58 | NUR ---
Family Contact: SW contacted patient's sister Meghan ([phone]) and informed her that the pt will be discharged at 1:30PM.
--- NOTE | 2020-01-11 14:39 | NUR ---
Sample GraderSupervisor Customer Services: Zeus Lloyd ([phone]), pts case management coordinator, called the SW to discuss the pts medications and then requested a copy of the notes to be faxed to [phone].
[2020-01-11 16:00] VITALS: BP 105/38
[2020-01-11 20:00] VITALS: BP 127/60
[2020-01-11] MEDS: EZETIMIBE 10 MG TABLET PO SCH (20:54)
[2020-01-11] MEDS: ARIPIPRAZOLE 5 MG TABLET PO SCH (20:54)
[2020-01-11] MEDS: ATORVASTATIN 20 MG TABLET PO SCH (20:55)
[2020-01-12] MEDS: TEMAZEPAM 7.5 MG CAPSULE PO PRN (00:44)
[2020-01-12 07:30] VITALS: BP 135/52
--- NOTE | 2020-01-12 08:46 | NUR ---
Discharge Note: Pt was discharged back to her home [place] at [address] [place] [address]; ([phone]). Pt will be picked up by county transportation at 1:30PM. Pts sister, Meghan ([phone]), was informed of the discharge. Pt appeared to be alert and oriented x4 (time, place, self and situation). Upon discharge, the pt appeared to be in a euthymic mood and affect was mood congruent. Pt denied both suicidal and homicidal ideation as well as auditory and visual hallucinations. Pt appeared to be nonambulatory and needs assistance with walker or wheelchair. Pt appeared to well-groomed and appropriately dressed. Pt will be under the care of her crimp setter, Dr. Penn , located at [address] [place] [address]. Pt has an appointment on WednesdayFebruary 01 at 10:30am. Pt will also follow up with psychiatrist, Dr. Víctor Morales, at [facility] [place] [address]; ([phone]); and a fax of records was sent to .
[2020-01-12] MEDS: OLOPATADINE 0.1% OPHT DROP 5 ML BOTTLE EACHEYE SCH (09:09)
[2020-01-12] MEDS: CHOLECALCIFEROL 1,000 UNIT TABLET PO SCH (09:09)
[2020-01-12] MEDS: DULOXETINE 30 MG CAPSULE.DR PO SCH (09:09)
[2020-01-12] MEDS: FLUTICASONE PROP NASAL SPRAY 16 GM BOTTLE NS SCH (09:09)
[2020-01-12] MEDS: DIVALPROEX 500 MG TABLET.DR PO SCH (09:09)
[2020-01-12] MEDS: OXYBUTYNIN CHLORIDE 5 MG TABLET PO SCH (09:10)
[2020-01-12] MEDS: ropiniROLE 1 MG TABLET PO SCH (09:10)
[2020-01-12] MEDS: METOPROLOL SUCCINATE XL 50 MG TAB.SR.24H PO SCH (09:20)
[2020-01-12 09:21] VITALS: BP 135/52
[2020-01-12] MEDS: HYDROCHLOROTHIAZIDE 25 MG TABLET PO SCH (09:21)
[2020-01-12] MEDS: LISINOPRIL 20 MG TABLET PO SCH (09:21)
[2020-01-12] MEDS: AMLODIPINE 5 MG TABLET PO SCH (09:21)
[2020-01-12] MEDS: HYDROCODONE/APAP 5-325MG TABLET PO PRN (09:29)
--- NOTE | 2020-01-12 10:36 | NUR ---
Family Contact: SW contacted patient's sister Meghan ([phone]), and left a voicemail stating that she needed her address to mail her an item from the pt that she cannot take with back with her for safety reasons.
--- NOTE | 2020-01-12 13:30 | NUR ---
Discharge order received. Discharge paperwork completed, reviewed with Pt, signed, originals placed in chart, and copies signed. VSS. All discharge concerns addressed. Sister, Meghan ([phone] notified of transfer and personal belonging item to be mailed to her for safety. All other personal belongings and valuables returned to Pt and list signed. No home medications to return. Pt escorted out to [facility] vehicle via wheelchair, with personal walker, to transport to home at [address] [place] [address]. Follow up care consists of continuing care with her eap specialist, Dr. Penn , located at [address] [place] [address]. Pt has an appointment on WednesdayFebruary 01 at 10:30am. Pt will also follow up with psychiatrist, Dr. Víctor Morales, at [facility] [place] [address]; ([phone]); and a fax of records was sent to . Pt safely transferred to vehicle. Will remove Pt from system shortly.
== END 2020-01-12 13:30 | disposition home or self-care (01) | DRG 885 ==
LOC: ER 20:36 → GPS 21:59
PROVIDERS: ADMIT Psychiatry & Neurology Psychiatry; ATTEND Internal Medicine
DX: F33.2 Major depressive disorder, recurrent severe without psychotic features (principal); N17.0 Acute kidney failure with tubular necrosis; N18.4 Chronic kidney disease, stage 4 (severe); K50.90 Crohn's disease, unspecified, without complications; R45.851 Suicidal ideations; Z68.42 Body mass index [BMI] 45.0-49.9, adult; D68.69 Other thrombophilia; E44.0 Moderate protein-calorie malnutrition; E78.5 Hyperlipidemia, unspecified; I12.9 Hypertensive chronic kidney disease with stage 1 through stage 4 chronic kidney disease, or unspecified chronic kidney disease; Z91.5 Personal history of self-harm; E83.42 Hypomagnesemia; E55.9 Vitamin D deficiency, unspecified; F43.10 Post-traumatic stress disorder, unspecified; G43.909 Migraine, unspecified, not intractable, without status migrainosus; Z87.891 Personal history of nicotine dependence; M79.7 Fibromyalgia; F12.10 Cannabis abuse, uncomplicated; E66.01 Morbid (severe) obesity due to excess calories; N20.0 Calculus of kidney; D63.8 Anemia in other chronic diseases classified elsewhere; M17.0 Bilateral primary osteoarthritis of knee; N32.81 Overactive bladder; Z86.79 Personal history of other diseases of the circulatory system; M35.3 Polymyalgia rheumatica; R73.03 Prediabetes; Z91.81 History of falling; X78.8XXD Intentional self-harm by other sharp object, subsequent encounter
CPT/HCPCS: 36415; 70030-TC; 80164; 82652; 83735; 84100; 84443; 85025; A4663; J3535

== ENCOUNTER 2020-02-14 19:02 | Inpatient (IN) | payer MEDICARE, OTHER ==
[~2020-02-14] VITALS: Ht 152.4 cm; Wt 101.6 kg
[~2020-02-14 19:02] MED LIST changes: +DICL100G16 TP; +EPIN0.3P3 IJ; +OLOP5DRO EACHEYE
--- NOTE | 2020-02-14 19:25 | NUR ---
Patient BIB pvt ambulance from [place] c/o SI. has SI but denies HI / AH / VH or a specefic plan. all belongings places away from patient and placed on a hospital gown. Denies any complaints at this time
--- NOTE | 2020-02-14 19:25 | NUR ---
Dr. Gannon at bedside for MSE
[2020-02-14] MEDS ORDERED: ATOR20TA PO (19:34)
[2020-02-14] MEDS ORDERED: DIVA-78 PO (19:34)
[2020-02-14] MEDS ORDERED: ARIP5TAB10 PO (19:34)
[2020-02-14] MEDS ORDERED: ACET-73 PO (19:34)
[2020-02-14] MEDS ORDERED: AMLO5TAB9 PO (19:34)
[2020-02-14] MEDS ORDERED: EZET10TA15 PO (19:34)
[2020-02-14] MEDS ORDERED: QUET200T PO (19:34)
[2020-02-14] MEDS ORDERED: FLUO40CA49 PO (19:34)
--- NOTE | 2020-02-14 19:48 | NUR ---
Report given to Cherrie DUQUE
[2020-02-14 20:00] VITALS: BP 138/63
--- NOTE | 2020-02-14 20:07 | NUR ---
Pt. admitted to MHU , under care of Dr. Rivera / [facility] Belongs List completed
[2020-02-14] MEDS ORDERED: MAG HYDROX/AL HYDROX/SIMETH 30 ML LIQUID UDC PO PRN (22:00)
[2020-02-14] MEDS ORDERED: ACETAMINOPHEN ES 500 MG TABLET PO PRN (22:00)
[2020-02-14] MEDS ORDERED: MAGNESIUM HYDROXIDE 30 ML LIQUID UDC PO PRN (22:00)
--- NOTE | 2020-02-14 23:12 | NUR ---
PATIENT RECEIVED FROM ER VIA [facility] AT 2004. PATIENT ALERT/ORIENTED X3 FLAT AFFECT, GUARDED, AND ANXIOUS. PATIENT REFUSED TO SIGN ADMISSION PACKET. PATIENT STATES CUTTING HER LEFT WRIST "I WAS FEELING SEVERALLY DEPRESSED." SHE ALSO STATED WHEN ASKED THAT SHE HAS A HISTORY OF SUICIDE AND LOST COUNT OF ATTEMPTS. LEFT WRIST LACERATION NOTED. PATIENT DENIES HALLUCINATIONS AND HOMICIDAL IDEATIONS.PATIENT DENIES PAIN AT THIS TIME, WILL CONTINUE TO MONITOR. PATIENT ORIENTED TO ROOM AND CHECKED FOR CONTRABAND, ALL ITEMS PLACED IN SAFE. SAFE ENVIRONMENT PROVIDED, FREQUENT ROUNDING, AND CLUTTER FREE ENVIRONMENT. BED IN LOWEST POSITION, BED LOCKED, AND BED ALARM ON WHILE IN BED.ADVISEMENT AND PATIENT HANDBOOK WAS PROVIDED TO PATIENT.
[2020-02-15 07:30] VITALS: BP 156/72
[2020-02-15 08:21] LABS: ALANINE AMINOTRANSFERASE 70 U/L (14-59); ALKALINE PHOSPHATASE 103 U/L (50-136); ASPARTATE AMINOTRANSFERASE 42 U/L (15-37); BILIRUBIN,TOTAL 0.3 mg/dL (0.2-1.0); CARBON DIOXIDE 26 mmol/L (21-32); CHLORIDE 106 mmol/L (98-107); CREATININE 1.7 mg/dL (0.6-1.3); GLUCOSE 98 mg/dL (74-106); POTASSIUM 4.3 mmol/L (3.5-5.1); TOTAL PROTEIN, SERUM 7.5 g/dL (6.4-8.2); UREA NITROGEN, BLOOD 43 mg/dL (7-18)
[2020-02-15] MEDS: AMLODIPINE 5 MG TABLET PO SCH (09:04)
[2020-02-15] MEDS: LISINOPRIL 20 MG TABLET PO SCH (09:04)
[2020-02-15] MEDS: HYDROCHLOROTHIAZIDE 25 MG TABLET PO SCH (09:46)
[2020-02-15] MEDS: OXYBUTYNIN CHLORIDE 5 MG TABLET PO SCH ×2 (09:47→18:10)
[2020-02-15] MEDS: FLUTICASONE PROP NASAL SPRAY 16 GM BOTTLE NS SCH (09:47)
[2020-02-15] MEDS: ropiniROLE 1 MG TABLET PO SCH ×3 (09:47→18:11)
[2020-02-15] MEDS: EZETIMIBE 10 MG TABLET PO SCH (09:48)
[2020-02-15] MEDS: METOPROLOL SUCCINATE XL 50 MG TAB.SR.24H PO SCH (09:48)
[2020-02-15] MEDS: ACETAMINOPHEN 325 MG TABLET PO PRN (09:59)
--- NOTE | 2020-02-15 10:26 | NUR ---
TRACIE Initial Discharge: Patient currently resides at [address] [place] [address];([phone]) alone. TRACIE met with pt to discuss discharge planning and pt agreed for a nursing facility. This field underwriter contacted patient's sister Geoffrey ([phone]) stated she is the DPOA and will send this field underwriter documents. maintenance worker municipal will work with the patient and the MD regarding appropriate discharge planning. maintenance worker municipal will form a safe and proper discharge.
--- NOTE | 2020-02-15 10:26 | NUR ---
TRACIE Family Contact: This tag writer contacted patient's sister Geoffrey ([phone]) stated she is the DPOA and will send this tag writer documents. This tag writer discussed treatment and discharge plan. This tag writer expressed concerns and risks of pt returning back home due to this being her 3rd admission in a year. TRACIE educated sister about SNF and the potential benefits for the pt. The sister is hesitant about this discussion but would want this tag writer to look into a SNF near [place].
--- NOTE | 2020-02-15 10:35 | NUR ---
Firearms Report DOJ: Dice Table Person completed and submitted a DPJ firearms report for 5150 grave disability certification. A copy of report has been placed in patient chart.
--- NOTE | 2020-02-15 11:16 | NUR ---
DPOA Documents: Sister Geoffrey ([phone]) sent DPOA documents and this race and sports book writer placed in the chart.
[2020-02-15 16:00] VITALS: BP 105/66
[2020-02-15 20:00] VITALS: BP 124/56
[2020-02-15] MEDS: ATORVASTATIN 20 MG TABLET PO SCH (20:45)
[2020-02-15] MEDS: TEMAZEPAM 7.5 MG CAPSULE PO PRN (21:05)
--- NOTE | 2020-02-16 05:52 | NUR ---
Received patient in bed. Awake, alert and oriented. Field Appraiser and patient engaged in meaningful conversation and patient expressed feeling depressed about " Getting old". Patient denies SI at this time, but when asked about the superficial cut on left wrist, patient said it was to get attention because things are not working out at home.Field Appraiser remembered this patient from last admission with same superficial wrist cut. Monitoring patient for safety. Max assistance given to patient when using the bathroom. Also monitoring for pain. No acute distress noted.
[2020-02-16 07:30] VITALS: BP 110/61
[2020-02-16] MEDS: METOPROLOL SUCCINATE XL 50 MG TAB.SR.24H PO SCH (08:38)
[2020-02-16] MEDS: LISINOPRIL 20 MG TABLET PO SCH (08:38)
[2020-02-16] MEDS: ropiniROLE 1 MG TABLET PO SCH ×3 (08:38→16:45)
[2020-02-16] MEDS: OXYBUTYNIN CHLORIDE 5 MG TABLET PO SCH ×2 (08:39→16:45)
[2020-02-16] MEDS: AMLODIPINE 5 MG TABLET PO SCH (08:39)
[2020-02-16] MEDS: FLUTICASONE PROP NASAL SPRAY 16 GM BOTTLE NS SCH (08:40)
[2020-02-16] MEDS: EZETIMIBE 10 MG TABLET PO SCH (08:40)
[2020-02-16] MEDS: HYDROCHLOROTHIAZIDE 25 MG TABLET PO SCH (08:40)
[2020-02-16] MEDS: ACETAMINOPHEN 325 MG TABLET PO PRN (10:11)
[2020-02-16 15:17] VITALS: BP 121/74
[2020-02-16] MEDS ORDERED: DULOXETINE 30 MG CAPSULE.DR PO SCH (18:45)
[2020-02-16 20:10] VITALS: BP 128/41
[2020-02-16] MEDS: ARIPIPRAZOLE 5 MG TABLET PO SCH (20:37)
[2020-02-16] MEDS: DIVALPROEX 500 MG TABLET.DR PO SCH (20:37)
[2020-02-16] MEDS: ATORVASTATIN 20 MG TABLET PO SCH (20:37)
[2020-02-17] MEDS: TEMAZEPAM 7.5 MG CAPSULE PO PRN ×2 (00:49→22:02)
[2020-02-17 07:30] VITALS: BP 129/45
[2020-02-17 07:30] LABS: BASOPHILS # (AUTO) 0.1 K/uL (0.0-8.0); BASOPHILS % (AUTO) 0.8 % (0.0-2.0); EOSINOPHILS # (AUTO) 0.3 K/uL (0.0-0.7); EOSINOPHILS % (AUTO) 2.1 % (0.0-7.0); HEMATOCRIT 28.6 % (31.2-41.9); HEMOGLOBIN 9.4 g/dL (10.9-14.3); LYMPHOCYTES # (AUTO) 2.9 K/uL (20.0-40.0); MEAN CORPUSCULAR HEMOGLOBIN 30.5 uug (24.7-32.8); MEAN CORPUSCULAR HGB CONC 33 g/dL (32.3-35.6); MEAN CORPUSCULAR VOLUME 92.6 fL (75.5-95.3); MONOCYTES # (AUTO) 1.6 K/uL (2.0-10.0); MONOCYTES % (AUTO) 9.7 % (0.0-11.0); NEUTROPHILS # (AUTO) 11.1 K/uL (1.8-8.9); NEUTROPHILS % (AUTO) 69.4 % (38.5-71.5); PLATELET COUNT (AUTO) 202 K/uL (179-408); RED BLOOD CELL COUNT(AUTO) 3.09 MIL/uL (3.63-4.92)
[2020-02-17 07:35] LABS: ALANINE AMINOTRANSFERASE 75 U/L (14-59); ALKALINE PHOSPHATASE 106 U/L (50-136); ASPARTATE AMINOTRANSFERASE 34 U/L (15-37); BILIRUBIN,TOTAL 0.2 mg/dL (0.2-1.0); CARBON DIOXIDE 25 mmol/L (21-32); CHLORIDE 104 mmol/L (98-107); CREATININE 1.7 mg/dL (0.6-1.3); GLUCOSE 101 mg/dL (74-106); PHOSPHOROUS 3.5 mg/dL (2.5-4.9); TOTAL PROTEIN, SERUM 7.2 g/dL (6.4-8.2); UREA NITROGEN, BLOOD 36 mg/dL (7-18)
[2020-02-17] MEDS: FLUTICASONE PROP NASAL SPRAY 16 GM BOTTLE NS SCH (08:35)
[2020-02-17] MEDS: EZETIMIBE 10 MG TABLET PO SCH (08:36)
[2020-02-17] MEDS: METOPROLOL SUCCINATE XL 50 MG TAB.SR.24H PO SCH (09:00)
[2020-02-17] MEDS: LISINOPRIL 20 MG TABLET PO SCH (09:00)
[2020-02-17] MEDS: AMLODIPINE 5 MG TABLET PO SCH (09:00)
[2020-02-17] MEDS: HYDROCHLOROTHIAZIDE 25 MG TABLET PO SCH (09:00)
[2020-02-17] MEDS: DIVALPROEX 500 MG TABLET.DR PO SCH ×2 (09:18→20:20)
[2020-02-17] MEDS: ropiniROLE 1 MG TABLET PO SCH ×3 (09:18→17:02)
[2020-02-17] MEDS: OXYBUTYNIN CHLORIDE 5 MG TABLET PO SCH ×2 (09:18→17:02)
[2020-02-17 15:53] VITALS: BP 121/64
[2020-02-17 20:00] VITALS: BP 140/82
[2020-02-17] MEDS: ATORVASTATIN 20 MG TABLET PO SCH (20:19)
[2020-02-17] MEDS: CLONAZEPAM 0.5 MG TABLET PO PRN (20:20)
[2020-02-17] MEDS: ACETAMINOPHEN 325 MG TABLET PO PRN (20:20)
[2020-02-17] MEDS: ARIPIPRAZOLE 5 MG TABLET PO SCH (20:20)
[2020-02-17 22:16] LABS: *BILIRUBIN,URIN NEGATIVE (NEGATIVE); *BLOOD, URINE NEGATIVE (NEGATIVE); *CLARITY,URINE CLEAR (CLEAR); *COLOR,URINE YELLOW (YELLOW); *KETONES,URINE NEGATIVE (NEGATIVE); *UROBILINOGEN,URINE 0.2 E.U./dl (NORMAL); LEUKOCYTE ESTERASE ,URINE NEGATIVE (NEGATIVE); NITRITE, URINE NEGATIVE (NEGATIVE); PH,URINE 6.5 (5.0-8.0); UGLUCOSE NEGATIVE (NEGATIVE)
[2020-02-17 22:18] LABS: *CREATININE,URINE 96.4 mg/dL (30-125); *URINE TOTAL PROTEIN RANDOM 14.2 mg/dL (<150/24HR)
[2020-02-18] MEDS: CLONAZEPAM 0.5 MG TABLET PO PRN (05:24)
[2020-02-18 06:58] LABS: CARBON DIOXIDE 27 mmol/L (21-32); CHLORIDE 103 mmol/L (98-107); CREATININE 1.6 mg/dL (0.6-1.3); GLUCOSE 95 mg/dL (74-106); POTASSIUM 3.9 mmol/L (3.5-5.1); UREA NITROGEN, BLOOD 33 mg/dL (7-18)
[2020-02-18 07:30] VITALS: BP 145/80
[2020-02-18 07:32] LABS: BASOPHILS # (AUTO) 0.1 K/uL (0.0-8.0); BASOPHILS % (AUTO) 0.6 % (0.0-2.0); EOSINOPHILS # (AUTO) 0.2 K/uL (0.0-0.7); EOSINOPHILS % (AUTO) 2.1 % (0.0-7.0); HEMATOCRIT 27.6 % (31.2-41.9); HEMOGLOBIN 9.2 g/dL (10.9-14.3); LYMPHOCYTES # (AUTO) 1.9 K/uL (20.0-40.0); LYMPHOCYTES % (AUTO) 22.9 % (20.5-51.5); MEAN CORPUSCULAR HEMOGLOBIN 31.1 uug (24.7-32.8); MEAN CORPUSCULAR HGB CONC 34 g/dL (32.3-35.6); MEAN CORPUSCULAR VOLUME 92.8 fL (75.5-95.3); MONOCYTES # (AUTO) 0.8 K/uL (2.0-10.0); MONOCYTES % (AUTO) 9.2 % (0.0-11.0); NEUTROPHILS # (AUTO) 5.4 K/uL (1.8-8.9); NEUTROPHILS % (AUTO) 65.2 % (38.5-71.5); PLATELET COUNT (AUTO) 220 K/uL (179-408); RED BLOOD CELL COUNT(AUTO) 2.97 MIL/uL (3.63-4.92); WHITE BLOOD COUNT (AUTO) 8.3 K/uL (3.8-11.8)
[2020-02-18] MEDS: ropiniROLE 1 MG TABLET PO SCH ×3 (08:10→16:27)
[2020-02-18] MEDS: EZETIMIBE 10 MG TABLET PO SCH (08:10)
[2020-02-18] MEDS: DIVALPROEX 500 MG TABLET.DR PO SCH ×2 (08:10→20:08)
[2020-02-18] MEDS: HYDROCHLOROTHIAZIDE 25 MG TABLET PO SCH (08:11)
[2020-02-18] MEDS: LISINOPRIL 20 MG TABLET PO SCH (08:11)
[2020-02-18] MEDS: METOPROLOL SUCCINATE XL 50 MG TAB.SR.24H PO SCH (08:12)
[2020-02-18] MEDS: OXYBUTYNIN CHLORIDE 5 MG TABLET PO SCH ×2 (08:12→16:27)
[2020-02-18] MEDS: AMLODIPINE 5 MG TABLET PO SCH (08:13)
[2020-02-18] MEDS: FLUTICASONE PROP NASAL SPRAY 16 GM BOTTLE NS SCH (08:13)
[2020-02-18 16:00] VITALS: BP 145/70
--- NOTE | 2020-02-18 18:55 | NUR ---
left pt. in bed resting no distress, noted, or reported, compliant with care.
[2020-02-18 20:00] VITALS: BP 133/66
[2020-02-18] MEDS: ATORVASTATIN 20 MG TABLET PO SCH (20:08)
[2020-02-18] MEDS: ARIPIPRAZOLE 5 MG TABLET PO SCH (20:09)
[2020-02-18] MEDS: TEMAZEPAM 7.5 MG CAPSULE PO PRN (21:27)
[2020-02-19] MEDS: CLONAZEPAM 0.5 MG TABLET PO PRN (00:16)
[2020-02-19] MEDS: ACETAMINOPHEN 325 MG TABLET PO PRN ×2 (00:16→15:36)
[2020-02-19 07:30] VITALS: BP 150/56
[2020-02-19] MEDS: FLUTICASONE PROP NASAL SPRAY 16 GM BOTTLE NS SCH (08:40)
[2020-02-19] MEDS: DIVALPROEX 500 MG TABLET.DR PO SCH ×2 (08:41→20:23)
[2020-02-19] MEDS: HYDROCHLOROTHIAZIDE 25 MG TABLET PO SCH (08:41)
[2020-02-19] MEDS: OXYBUTYNIN CHLORIDE 5 MG TABLET PO SCH ×2 (08:41→16:22)
[2020-02-19] MEDS: METOPROLOL SUCCINATE XL 50 MG TAB.SR.24H PO SCH (08:42)
[2020-02-19] MEDS: AMLODIPINE 5 MG TABLET PO SCH (08:42)
[2020-02-19] MEDS: ropiniROLE 1 MG TABLET PO SCH ×3 (08:42→16:22)
[2020-02-19] MEDS: LISINOPRIL 20 MG TABLET PO SCH (08:42)
[2020-02-19] MEDS: EZETIMIBE 10 MG TABLET PO SCH (08:42)
[2020-02-19 15:17] VITALS: BP 139/69
[2020-02-19] MEDS: ARIPIPRAZOLE 5 MG TABLET PO SCH (20:24)
[2020-02-19] MEDS: ATORVASTATIN 20 MG TABLET PO SCH (20:24)
[2020-02-19 21:18] VITALS: BP 121/56
[2020-02-19] MEDS: TEMAZEPAM 7.5 MG CAPSULE PO PRN (21:41)
--- NOTE | 2020-02-20 00:40 | NUR ---
RECEIVED PATIENT IN BED AWAKE. NOTED DEPRESSED, GUARDED, AND ANXIOUS. DENIES SI/HI AT THIS TIME. COMPLIANT WITH MEDICATIONS AND CAN ENGAGE IN MEANINGFUL CONVERSATION. ABLE TO TRANSFER HERSELF TO AND FROM THE BED TO THE CHAIR. VISUAL CHECKS MADE ON HER FOR SAFETY.WILL CONTINUE TO MONITOR.
[2020-02-20] MEDS: CLONAZEPAM 0.5 MG TABLET PO PRN ×2 (02:47→20:14)
--- NOTE | 2020-02-20 06:52 | NUR ---
SLEPT FOR 8:50 HOURS. SHE HAS HAD A SHOWER. GIVEN RESTORIL AT 21;50 AND CLONAZEPAM AT 03:00.
[2020-02-20 07:30] VITALS: BP 147/70
[2020-02-20] MEDS: DIVALPROEX 500 MG TABLET.DR PO SCH ×2 (08:05→20:14)
[2020-02-20] MEDS: OXYBUTYNIN CHLORIDE 5 MG TABLET PO SCH ×2 (08:05→16:04)
[2020-02-20] MEDS: LISINOPRIL 20 MG TABLET PO SCH (08:07)
[2020-02-20] MEDS: ropiniROLE 1 MG TABLET PO SCH ×3 (08:07→16:04)
[2020-02-20] MEDS: EZETIMIBE 10 MG TABLET PO SCH (08:07)
[2020-02-20] MEDS: METOPROLOL SUCCINATE XL 50 MG TAB.SR.24H PO SCH (08:07)
[2020-02-20] MEDS: AMLODIPINE 5 MG TABLET PO SCH (08:07)
[2020-02-20] MEDS: HYDROCHLOROTHIAZIDE 25 MG TABLET PO SCH (08:08)
[2020-02-20] MEDS: FLUTICASONE PROP NASAL SPRAY 16 GM BOTTLE NS SCH (08:08)
--- NOTE | 2020-02-20 09:42 | NUR ---
SNF Referral: TRACIE faxed a referral to [facility] with attn to Juan José to the fax number: [phone].
--- NOTE | 2020-02-20 15:03 | NUR ---
Probable Cause Hearing: Probable cause was upheld for pts 5250 hold for grave disability.
--- NOTE | 2020-02-20 15:04 | NUR ---
SNF Contact: Juan José ([phone]) from [facility] called the SW and stated that the pt is accepted to their facility pending the Medicare information that the SW faxed over as well and pending an evaluation.
[2020-02-20 16:00] VITALS: BP 121/61
[2020-02-20] MEDS: CITALOPRAM 20 MG TABLET PO SCH (16:04)
[2020-02-20] MEDS: ACETAMINOPHEN 325 MG TABLET PO PRN ×2 (16:52→20:14)
[2020-02-20 20:12] VITALS: BP 151/67
[2020-02-20] MEDS: ARIPIPRAZOLE 5 MG TABLET PO SCH (20:13)
[2020-02-20] MEDS: ATORVASTATIN 20 MG TABLET PO SCH (20:14)
[2020-02-20] MEDS: TEMAZEPAM 7.5 MG CAPSULE PO PRN (22:35)
[2020-02-21 07:06] LABS: CARBON DIOXIDE 25 mmol/L (21-32); CHLORIDE 104 mmol/L (98-107); CREATININE 1.8 mg/dL (0.6-1.3); GLUCOSE 94 mg/dL (74-106); POTASSIUM 4.3 mmol/L (3.5-5.1); UREA NITROGEN, BLOOD 46 mg/dL (7-18)
[2020-02-21 07:30] VITALS: BP 124/59
[2020-02-21] MEDS: FLUTICASONE PROP NASAL SPRAY 16 GM BOTTLE NS SCH (08:32)
[2020-02-21] MEDS: CITALOPRAM 20 MG TABLET PO SCH (08:32)
[2020-02-21] MEDS: DIVALPROEX 500 MG TABLET.DR PO SCH ×2 (08:32→20:28)
[2020-02-21] MEDS: EZETIMIBE 10 MG TABLET PO SCH (08:33)
[2020-02-21] MEDS: ropiniROLE 1 MG TABLET PO SCH ×3 (08:33→17:10)
[2020-02-21] MEDS: OXYBUTYNIN CHLORIDE 5 MG TABLET PO SCH ×2 (08:33→17:12)
[2020-02-21] MEDS: HYDROCHLOROTHIAZIDE 25 MG TABLET PO SCH (08:35)
[2020-02-21] MEDS: METOPROLOL SUCCINATE XL 50 MG TAB.SR.24H PO SCH (08:36)
[2020-02-21] MEDS: LISINOPRIL 20 MG TABLET PO SCH (08:41)
[2020-02-21] MEDS: AMLODIPINE 5 MG TABLET PO SCH (08:42)
--- NOTE | 2020-02-21 11:10 | NUR ---
Family Contact: This health science writer contacted patient's sister Geoffrey ([phone]) and informed her that the pt agreed to go to a SNF from the hospital. SW stated that there is one facility that is willing to accept her at this time and it is called [facility]. SW stated that she does not have a discharge date at this time but she will inform her once she does.
[2020-02-21] MEDS: HYDROCODONE/APAP 5-325MG TABLET PO PRN (11:13)
[2020-02-21 16:00] VITALS: BP 115/55
--- NOTE | 2020-02-21 16:20 | NUR ---
Pt received, assessed, able to make needs known and CFS. Pt denies SI/HI, AH/VH. Pt cooperative with care provided and compliant with medications as offered. Pt reports 8-01/03 Yoder 5 administered per PRN orders. Reported effective for chronic knee pain. All comfort and safety measures implemented. Will continue to monitor Pt for safety.
[2020-02-21] MEDS: ACETAMINOPHEN 325 MG TABLET PO PRN (17:21)
[2020-02-21 20:27] VITALS: BP 131/51
[2020-02-21] MEDS: ARIPIPRAZOLE 5 MG TABLET PO SCH (20:28)
[2020-02-21] MEDS: ATORVASTATIN 20 MG TABLET PO SCH (20:29)
--- NOTE | 2020-02-21 22:35 | NUR ---
Patient received in bed awake and assessed. Patient able to make needs known. Pt denies SI/HI, AH/VH. Pt cooperative with care provided and compliant with medications as offered. All comfort and safety measures implemented. Will continue to monitor Pt for safety.
[2020-02-21] MEDS: TEMAZEPAM 7.5 MG CAPSULE PO PRN (22:43)
[2020-02-22 07:30] VITALS: BP 130/45
[2020-02-22] MEDS: EZETIMIBE 10 MG TABLET PO SCH (08:34)
[2020-02-22] MEDS: AMLODIPINE 5 MG TABLET PO SCH (08:35)
[2020-02-22] MEDS: DIVALPROEX 500 MG TABLET.DR PO SCH ×2 (08:35→20:33)
[2020-02-22] MEDS: LISINOPRIL 20 MG TABLET PO SCH (08:35)
[2020-02-22] MEDS: METOPROLOL SUCCINATE XL 50 MG TAB.SR.24H PO SCH (08:36)
[2020-02-22] MEDS: OXYBUTYNIN CHLORIDE 5 MG TABLET PO SCH ×2 (08:37→16:58)
[2020-02-22] MEDS: HYDROCHLOROTHIAZIDE 25 MG TABLET PO SCH (08:37)
[2020-02-22] MEDS: ropiniROLE 1 MG TABLET PO SCH ×3 (08:37→16:58)
[2020-02-22] MEDS: CITALOPRAM 20 MG TABLET PO SCH (08:37)
[2020-02-22] MEDS: FLUTICASONE PROP NASAL SPRAY 16 GM BOTTLE NS SCH (08:38)
--- NOTE | 2020-02-22 13:52 | NUR ---
SNF Contact: Juan José ([phone]) from [facility] contacted the and stated that the pt is officially accepted upon a negative COVID test.
--- NOTE | 2020-02-22 14:02 | NUR ---
Family Contact: This gag writer contacted patient's sister Geoffrey ([phone]) and left a voicemail stating that the pt will be discharged tomorrow.
[2020-02-22 16:00] VITALS: BP 145/62
--- NOTE | 2020-02-22 18:08 | NUR ---
Gps/As400 Administrator- Covid swab test done, taken to lab. patient tolerated swabbing well.
[2020-02-22 20:00] VITALS: BP 139/52
[2020-02-22] MEDS: ATORVASTATIN 20 MG TABLET PO SCH (20:33)
[2020-02-22] MEDS: ARIPIPRAZOLE 5 MG TABLET PO SCH (20:33)
[2020-02-22] MEDS: TEMAZEPAM 7.5 MG CAPSULE PO PRN (22:06)
[2020-02-23] MEDS: HYDROCODONE/APAP 5-325MG TABLET PO PRN ×2 (05:35→13:07)
[2020-02-23 07:30] VITALS: BP 137/53
[2020-02-23] MEDS: EZETIMIBE 10 MG TABLET PO SCH (08:56)
[2020-02-23] MEDS: OXYBUTYNIN CHLORIDE 5 MG TABLET PO SCH (08:57)
[2020-02-23] MEDS: HYDROCHLOROTHIAZIDE 25 MG TABLET PO SCH (08:57)
[2020-02-23] MEDS: ropiniROLE 1 MG TABLET PO SCH ×2 (08:57→13:04)
[2020-02-23] MEDS: DIVALPROEX 500 MG TABLET.DR PO SCH (08:59)
[2020-02-23] MEDS: CITALOPRAM 20 MG TABLET PO SCH (09:00)
[2020-02-23] MEDS: AMLODIPINE 5 MG TABLET PO SCH (09:01)
[2020-02-23] MEDS: FLUTICASONE PROP NASAL SPRAY 16 GM BOTTLE NS SCH (09:01)
[2020-02-23] MEDS: LISINOPRIL 20 MG TABLET PO SCH (09:02)
[2020-02-23 09:03] VITALS: BP 137/53
[2020-02-23] MEDS: METOPROLOL SUCCINATE XL 50 MG TAB.SR.24H PO SCH (09:03)
--- NOTE | 2020-02-23 09:08 | NUR ---
Discharge Note: Pt was discharged to [facility] SNF located at [address] [place] [address] . Pt was transported via [facility] at 1PM. Pts sister, Geoffrey ([phone]), was informed. Upon discharge, the pt appeared to be in a depressed mood and presented with a distressed affect. Pt appeared to be oriented x4 (time, place, self and situation). Pt appears to be well groomed and appropriately dressed. Pt is nonambulatory and utilizes a wheelchair. Pt denied visual and auditory hallucinations as well as suicidal and homicidal ideation. Pt will be under the care of psychiatrist, Dr. Rivera, located at [address] [place] [address]; and typing checker, Dr Vazquez, located at [address] [address]; . Pt signed the Choice of Vendor form. The multidisciplinary exit care form was done, printed, signed, and given to the patient.
--- NOTE | 2020-02-23 13:34 | NUR ---
Gps/Gis Coordinator- called [facility], report given to Nurse Mya. All belongings given back to patient, aware of her discharged plan, sister Geoffrey was anne marie well informed of dc. plan .supply crib attendant time at 1430 via ambulance, as arranged.
--- NOTE | 2020-02-23 15:05 | NUR ---
Gps/patient resource specialist- Discharged to [facility] via ambulance. All belongings /valuables given back to patient .No new complaints noted, discharged in good spirit.
== END 2020-02-23 15:11 | DRG 885 ==
LOC: ER 19:04 → GPS 19:58
PROVIDERS: ADMIT Psychiatry & Neurology Psychiatry; ATTEND Family Medicine
DX: F33.2 Major depressive disorder, recurrent severe without psychotic features (principal); N18.9 Chronic kidney disease, unspecified; N17.9 Acute kidney failure, unspecified; R45.851 Suicidal ideations; K50.90 Crohn's disease, unspecified, without complications; E44.0 Moderate protein-calorie malnutrition; Z68.41 Body mass index [BMI] 40.0-44.9, adult; G25.81 Restless legs syndrome; I12.9 Hypertensive chronic kidney disease with stage 1 through stage 4 chronic kidney disease, or unspecified chronic kidney disease; E78.5 Hyperlipidemia, unspecified; M79.7 Fibromyalgia; M17.10 Unilateral primary osteoarthritis, unspecified knee; Z87.891 Personal history of nicotine dependence; F41.9 Anxiety disorder, unspecified; N20.0 Calculus of kidney; G43.909 Migraine, unspecified, not intractable, without status migrainosus; F43.10 Post-traumatic stress disorder, unspecified; F12.10 Cannabis abuse, uncomplicated; D72.829 Elevated white blood cell count, unspecified; E86.9 Volume depletion, unspecified; F31.30 Bipolar disorder, current episode depressed, mild or moderate severity, unspecified; Z86.79 Personal history of other diseases of the circulatory system
CPT/HCPCS: 36415; 83735; 84100; 84156; 84300; 85025; 93005; A4663; J3535

== ENCOUNTER 2021-01-16 19:39 | Inpatient (IN) | payer MEDICARE, OTHER ==
[~2021-01-16] VITALS: Ht 154.9 cm; Wt 95.3 kg
[~2021-01-16 19:39] MED LIST changes: +ACET-73 PO; +AMLO-212 PO; +ATOR20TA PO; +EZET10TA15 PO; -LISI-603 PO; +LISI20TA30 PO; -OLOP5DRO EACHEYE; -SIMV-46 PO
--- NOTE | 2021-01-16 19:44 | NUR ---
PT PLACED IN ROOM 05A, 1:1 SUPERVISION WITH SECURITY.
--- NOTE | 2021-01-16 19:45 | NUR ---
Patient BIB [facility] ambulance #[id number] for c/o of SI the whole day today. Stated she plans to use a razor or blade. Patient voluntarily wanted to come in for help.
--- NOTE | 2021-01-16 19:53 | NUR ---
Dr. Rhodes at bedside for MSE.
[2021-01-16] MEDS ORDERED: ACETAMINOPHEN ES 500 MG TABLET PO ONE (20:00)
[2021-01-16 20:10] LABS: HEMATOCRIT 30.4 % (31.2-41.9); MEAN CORPUSCULAR HEMOGLOBIN 29.5 uug (24.7-32.8); MEAN CORPUSCULAR VOLUME 89.9 fL (75.5-95.3); PLATELET COUNT (AUTO) 200 K/uL (179-408)
[2021-01-16] MEDS ORDERED: ACETAMINOPHEN ES 500 MG TABLET ONE (20:18)
[2021-01-16] MEDS ORDERED: ACET-2154 PO (20:19)
[2021-01-16 20:20] LABS: CARBON DIOXIDE 24 mmol/L (21-32); CHLORIDE 108 mmol/L (98-107); CREATININE 1.3 mg/dL (0.6-1.3); GLUCOSE 98 mg/dL (74-106); POTASSIUM 3.7 mmol/L (3.5-5.1); UREA NITROGEN, BLOOD 20 mg/dL (7-18)
[2021-01-16] MEDS ORDERED: AMLO10TA59 PO (20:26)
[2021-01-16 20:27] LABS: ETHANOL < 3 MG/DL (0-0)
[2021-01-16 20:28] LABS: ACETAMINOPHEN < 2.0 ug/mL (10-30); ALANINE AMINOTRANSFERASE 6 U/L (14-59); ALKALINE PHOSPHATASE 77 U/L (50-136); ASPARTATE AMINOTRANSFERASE 14 U/L (15-37); BILIRUBIN,DIRECT 0.1 mg/dL (0.0-0.2); BILIRUBIN,TOTAL 0.2 mg/dL (0.2-1.0); TOTAL PROTEIN, SERUM 7.2 g/dL (6.4-8.2)
[2021-01-16 20:32] LABS: *BILIRUBIN,URIN NEGATIVE (NEGATIVE); *BLOOD, URINE NEGATIVE (NEGATIVE); *COLOR,URINE YELLOW (YELLOW); *KETONES,URINE NEGATIVE (NEGATIVE); *UROBILINOGEN,URINE 0.2 E.U./dl (NORMAL); LEUKOCYTE ESTERASE ,URINE 1+ (NEGATIVE); NITRITE, URINE NEGATIVE (NEGATIVE); UGLUCOSE NEGATIVE (NEGATIVE)
[2021-01-16 20:37] LABS: *CLARITY,URINE HAZY (CLEAR); BACTERIA,URINE FEW /HPF (NONE SEEN); RBC,URINE 0-3 /HPF (0-3); SQUAMOUS EPITHELIAL CELL,UR MODERATE /HPF (NONE SEEN)
[2021-01-16 20:39] LABS: THYROID STIMULATING HORMONE 2.739 mIU/mL (0.358-3.740)
[2021-01-16 20:42] LABS: *AMPHETAMINE, URINE NEGATIVE (NEGATIVE); *CANNABINOID, URINE NEGATIVE (NEGATIVE); *COCCAINE, URINE NEGATIVE (NEGATIVE); *OPIATE, URINE NEGATIVE (NEGATIVE); *PHENCYCLIDINE SCREEN,URINE NEGATIVE (NEGATIVE)
[2021-01-16] MEDS ORDERED: DIVA500T4 PO (20:53)
[2021-01-16] MEDS ORDERED: MAGN400T8 PO (20:53)
[2021-01-16] MEDS ORDERED: POLY17PO4 GT (20:53)
[2021-01-16] MEDS ORDERED: FERR325T28 PO (20:53)
[2021-01-16] MEDS ORDERED: MELA3TAB41 PO (20:53)
[2021-01-16] MEDS ORDERED: QUET200T PO (20:53)
[2021-01-16] MEDS ORDERED: FLUO20CA42 PO (20:53)
[2021-01-16] MEDS ORDERED: ASCO500P18 PO (20:53)
[2021-01-16] MEDS ORDERED: PANT40TA49 PO (20:53)
[2021-01-16] MEDS ORDERED: TRAM50TA2 PO (20:53)
[2021-01-16] MEDS ORDERED: DICY20TA11 PO (20:53)
[2021-01-16] MEDS ORDERED: LOSA100T31 PO (20:53)
[2021-01-16] MEDS ORDERED: DOCU100C36 PO (20:53)
--- NOTE | 2021-01-16 20:55 | NUR ---
Dr. Rhodes spoke to crisis team/Priya for eval.
[2021-01-16] MEDS ORDERED: HYDR-4077 PO (20:59)
--- NOTE | 2021-01-16 21:21 | NUR ---
Crisis team Pinky here for eval.
[2021-01-16] MEDS ORDERED: MAGNESIUM HYDROXIDE 30 ML LIQUID UDC PO PRN (22:45)
[2021-01-16] MEDS ORDERED: ZOLPIDEM 5 MG TABLET PO PRN (22:45)
[2021-01-16] MEDS ORDERED: BLOOD SUGAR DIAGNOSTIC 1 EACH STRIP VI ONE (22:45)
[2021-01-16] MEDS ORDERED: LORAZEPAM 0.5 MG TABLET PO PRN (22:45)
[2021-01-16] MEDS ORDERED: ACETAMINOPHEN 325 MG TABLET PO PRN (22:45)
[2021-01-16] MEDS ORDERED: MAG HYDROX/AL HYDROX/SIMETH 30 ML LIQUID UDC PO PRN (22:45)
[2021-01-16 22:47] VITALS: BP 150/71
--- NOTE | 2021-01-16 22:54 | NUR ---
Pt. admitted to [facility], Room 137B, under care of Dr. Mauro and Dr. Kaye. Belongs List completed
--- NOTE | 2021-01-17 05:38 | NUR ---
2235--Received pt in GPS on a gurney, in a safe and stable condition. No s/s of distress, no c/o pain. Alert, oriented x3. Upon jruh-ty-kubq assessment, pt is cooperative and interacts appropriately with staff. Denies SI upon admission, able to contract for safety. Per hold, pt is here because she has not been eating at her facility and wanted to hurt herself using a razor/blade. Dr. Mauro made aware of admission. Patients' Rights handbook and Advisement given to pt. Q15min checks done to ensure safety. Other safety precautions in place. Will endorse accordingly.
[2021-01-17] MEDS ORDERED: MELATONIN 3 MG TABLET PO PRN ×2 (08:30→08:45)
[2021-01-17 08:55] LABS: ALANINE AMINOTRANSFERASE 10 U/L (14-59); ALKALINE PHOSPHATASE 77 U/L (50-136); ASPARTATE AMINOTRANSFERASE 10 U/L (15-37); BILIRUBIN,TOTAL 0.2 mg/dL (0.2-1.0); CARBON DIOXIDE 25 mmol/L (21-32); CHLORIDE 108 mmol/L (98-107); CREATININE 1.5 mg/dL (0.6-1.3); GLUCOSE 99 mg/dL (74-106); POTASSIUM 3.7 mmol/L (3.5-5.1); TOTAL PROTEIN, SERUM 7.1 g/dL (6.4-8.2); UREA NITROGEN, BLOOD 21 mg/dL (7-18)
[2021-01-17] MEDS ORDERED: MIRALAX 17 GM POWD.PACK GT SCH (09:00)
[2021-01-17] MEDS: MIRALAX 17 GM POWD.PACK PO SCH ×2 (09:00→16:10)
--- NOTE | 2021-01-17 09:43 | NUR ---
Firearms Report: Overlock Sewing Machine Operator completed and submitted a DOJ firearms report for 5150 grave disability certifications. A copy of report has been placed in patient chart.
[2021-01-17] MEDS: LOSARTAN POTASSIUM 50 MG TABLET PO SCH (11:10)
[2021-01-17] MEDS: FERROUS SULFATE 325 MG TABEC PO SCH (11:10)
[2021-01-17] MEDS: DOCUSATE SODIUM 100 MG CAPSULE PO SCH ×2 (11:10→16:09)
[2021-01-17] MEDS: METOPROLOL SUCCINATE XL 50 MG TAB.SR.24H PO SCH (11:11)
[2021-01-17] MEDS: FLUTICASONE PROP NASAL SPRAY 16 GM BOTTLE NS SCH (11:11)
[2021-01-17] MEDS: ASCORBIC ACID 500 MG TABLET PO SCH (11:11)
[2021-01-17] MEDS: AMLODIPINE 10 MG TABLET PO SCH (11:11)
[2021-01-17] MEDS: OXYBUTYNIN CHLORIDE 5 MG TABLET PO SCH ×2 (11:12→16:09)
[2021-01-17] MEDS: hydrALAZINE HCL 50 MG TABLET PO SCH ×3 (11:12→16:10)
[2021-01-17] MEDS: DICYCLOMINE HCL 20 MG TABLET PO SCH (11:13)
[2021-01-17 11:22] VITALS: BP 166/66
--- NOTE | 2021-01-17 11:30 | NUR ---
TRACIE Initial Discharge Note Patient currently resides [facility], assisted living, at [address] [place] [address] ([phone]). TRACIE met with pt to discuss discharge planning and pt reports she will return to [facility]. TRACIE called [facility] ([phone]) and spoke with Elisha. Elisha confirmed that pt is welcome back upon discharge. TRACIE will continue to work with patient and MD to ensure a safe and proper discharge plan.
--- NOTE | 2021-01-17 11:31 | NUR ---
SW Facility Contact SW called [facility] ([phone]) and spoke with Elisha. Elisha confirmed that pt is welcome back upon discharge. Elisha states facility may be able to assist with transportation Wednesday, Wednesday, or .
[2021-01-17] MEDS: FLUOXETINE HCL 20 MG CAPSULE PO SCH (12:16)
[2021-01-17] MEDS: TRAMADOL HCL 50 MG TABLET PO PRN (12:16)
[2021-01-17] MEDS: PANTOPRAZOLE SODIUM 40 MG TABLET.DR PO SCH (12:18)
[2021-01-17 15:30] VITALS: BP 159/83
[2021-01-17 20:08] VITALS: BP 141/65
[2021-01-17] MEDS: DIVALPROEX ER 500 MG TAB.SR.24H PO SCH (20:12)
[2021-01-17] MEDS: ATORVASTATIN 20 MG TABLET PO SCH (20:12)
[2021-01-17] MEDS: QUETIAPINE FUMARATE 200 MG TABLET PO SCH (20:12)
[2021-01-18 07:24] LABS: CARBON DIOXIDE 23 mmol/L (21-32); CHLORIDE 108 mmol/L (98-107); CREATININE 1.7 mg/dL (0.6-1.3); FERRITIN 59 ng/mL (8-252); GLUCOSE 113 mg/dL (74-106); POTASSIUM 3.9 mmol/L (3.5-5.1); UREA NITROGEN, BLOOD 28 mg/dL (7-18)
[2021-01-18 07:29] LABS: IRON, SERUM 37 ug/dL (50-175)
[2021-01-18 07:30] VITALS: BP 138/59
[2021-01-18] MEDS: PANTOPRAZOLE SODIUM 40 MG TABLET.DR PO SCH (07:47)
[2021-01-18] MEDS: FLUOXETINE HCL 20 MG CAPSULE PO SCH (08:01)
[2021-01-18] MEDS: DOCUSATE SODIUM 100 MG CAPSULE PO SCH ×2 (08:01→16:04)
[2021-01-18] MEDS: ASCORBIC ACID 500 MG TABLET PO SCH (08:01)
[2021-01-18] MEDS: DICYCLOMINE HCL 20 MG TABLET PO SCH (08:02)
[2021-01-18] MEDS: OXYBUTYNIN CHLORIDE 5 MG TABLET PO SCH ×2 (08:03→16:04)
[2021-01-18] MEDS: FERROUS SULFATE 325 MG TABEC PO SCH (08:03)
[2021-01-18] MEDS: FLUTICASONE PROP NASAL SPRAY 16 GM BOTTLE NS SCH (08:04)
[2021-01-18] MEDS: hydrALAZINE HCL 50 MG TABLET PO SCH ×3 (08:05→16:04)
[2021-01-18] MEDS: AMLODIPINE 10 MG TABLET PO SCH (08:05)
[2021-01-18] MEDS: LOSARTAN POTASSIUM 50 MG TABLET PO SCH (08:05)
[2021-01-18] MEDS: METOPROLOL SUCCINATE XL 50 MG TAB.SR.24H PO SCH (08:06)
[2021-01-18] MEDS: MIRALAX 17 GM POWD.PACK PO SCH ×2 (08:10→16:05)
[2021-01-18 16:00] VITALS: BP 120/45
[2021-01-18 20:00] VITALS: BP 131/86
[2021-01-18] MEDS: ATORVASTATIN 20 MG TABLET PO SCH (20:20)
[2021-01-18] MEDS: QUETIAPINE FUMARATE 200 MG TABLET PO SCH (20:20)
[2021-01-18] MEDS: DIVALPROEX ER 500 MG TAB.SR.24H PO SCH (20:20)
[2021-01-18] MEDS: TRAMADOL HCL 50 MG TABLET PO PRN (20:26)
[2021-01-19] MEDS: TRAMADOL HCL 50 MG TABLET PO PRN ×2 (05:34→20:43)
[2021-01-19 06:57] LABS: CARBON DIOXIDE 23 mmol/L (21-32); CHLORIDE 107 mmol/L (98-107); CREATININE 1.6 mg/dL (0.6-1.3); GLUCOSE 98 mg/dL (74-106); POTASSIUM 4.3 mmol/L (3.5-5.1); UREA NITROGEN, BLOOD 33 mg/dL (7-18)
[2021-01-19] MEDS: PANTOPRAZOLE SODIUM 40 MG TABLET.DR PO SCH (06:58)
[2021-01-19 07:30] VITALS: BP 152/59
[2021-01-19] MEDS: LOSARTAN POTASSIUM 50 MG TABLET PO SCH (08:06)
[2021-01-19] MEDS: FLUOXETINE HCL 20 MG CAPSULE PO SCH (08:06)
[2021-01-19] MEDS: ASCORBIC ACID 500 MG TABLET PO SCH (08:06)
[2021-01-19] MEDS: METOPROLOL SUCCINATE XL 50 MG TAB.SR.24H PO SCH (08:07)
[2021-01-19] MEDS: hydrALAZINE HCL 50 MG TABLET PO SCH ×3 (08:07→16:05)
[2021-01-19] MEDS: DOCUSATE SODIUM 100 MG CAPSULE PO SCH ×2 (08:07→16:01)
[2021-01-19] MEDS: OXYBUTYNIN CHLORIDE 5 MG TABLET PO SCH ×2 (08:07→16:05)
[2021-01-19] MEDS: AMLODIPINE 10 MG TABLET PO SCH (08:07)
[2021-01-19] MEDS: DICYCLOMINE HCL 20 MG TABLET PO SCH (08:07)
[2021-01-19] MEDS: FERROUS SULFATE 325 MG TABEC PO SCH (08:07)
[2021-01-19] MEDS: FLUTICASONE PROP NASAL SPRAY 16 GM BOTTLE NS SCH (08:08)
[2021-01-19] MEDS: MIRALAX 17 GM POWD.PACK PO SCH ×2 (08:08→16:01)
[2021-01-19 16:00] VITALS: BP 126/63
[2021-01-19 19:47] VITALS: BP 136/64
[2021-01-19] MEDS: QUETIAPINE FUMARATE 200 MG TABLET PO SCH (20:11)
[2021-01-19] MEDS: DIVALPROEX ER 500 MG TAB.SR.24H PO SCH (20:11)
[2021-01-19] MEDS: ATORVASTATIN 20 MG TABLET PO SCH (20:11)
[2021-01-20] MEDS ORDERED: Z GUARD REMEDY PASTE 57 GM TUBE TOP PRN (02:00)
[2021-01-20] MEDS: PANTOPRAZOLE SODIUM 40 MG TABLET.DR PO SCH (06:31)
[2021-01-20 07:46] VITALS: BP 122/52
[2021-01-20] MEDS: METOPROLOL SUCCINATE XL 50 MG TAB.SR.24H PO SCH (08:08)
[2021-01-20] MEDS: FERROUS SULFATE 325 MG TABEC PO SCH (08:08)
[2021-01-20] MEDS: ASCORBIC ACID 500 MG TABLET PO SCH (08:09)
[2021-01-20] MEDS: AMLODIPINE 10 MG TABLET PO SCH (08:09)
[2021-01-20] MEDS: DOCUSATE SODIUM 100 MG CAPSULE PO SCH ×2 (08:09→16:26)
[2021-01-20] MEDS: FLUOXETINE HCL 20 MG CAPSULE PO SCH (08:09)
[2021-01-20] MEDS: MIRALAX 17 GM POWD.PACK PO SCH ×2 (08:10→16:26)
[2021-01-20] MEDS: LOSARTAN POTASSIUM 50 MG TABLET PO SCH (08:10)
[2021-01-20] MEDS: FLUTICASONE PROP NASAL SPRAY 16 GM BOTTLE NS SCH (08:12)
[2021-01-20] MEDS: hydrALAZINE HCL 50 MG TABLET PO SCH ×3 (08:13→16:26)
[2021-01-20] MEDS: DICYCLOMINE HCL 20 MG TABLET PO SCH (08:13)
[2021-01-20] MEDS: OXYBUTYNIN CHLORIDE 5 MG TABLET PO SCH ×2 (08:13→16:27)
[2021-01-20 15:42] VITALS: BP 111/40
--- NOTE | 2021-01-20 15:48 | NUR ---
PATIENT IS SIT IN BED, COMPLIANT WITH ALL MEDICATIONS AND CARE. NO AGGRESSIVE OR COMBATIVE BEHAVIOR NOTED. DENIES SI AT THIS TIME. UP TO WHEEL CHAIR ABLE TO WHEEL SELF AROUND.ENCOURAGE TO ATTENDS AND PARTICIPATED IN GROUP ACTIVITY , WILL CONTINUE CLOSE MONITORING.
[2021-01-20 19:55] VITALS: BP 118/51
[2021-01-20] MEDS: QUETIAPINE FUMARATE 200 MG TABLET PO SCH (20:31)
[2021-01-20] MEDS: ATORVASTATIN 20 MG TABLET PO SCH (20:31)
[2021-01-20] MEDS: DIVALPROEX ER 500 MG TAB.SR.24H PO SCH (20:31)
[2021-01-21] MEDS: PANTOPRAZOLE SODIUM 40 MG TABLET.DR PO SCH (06:40)
[2021-01-21 07:30] VITALS: BP 122/50
[2021-01-21] MEDS: FLUOXETINE HCL 20 MG CAPSULE PO SCH (08:23)
[2021-01-21] MEDS: LOSARTAN POTASSIUM 50 MG TABLET PO SCH (08:23)
[2021-01-21] MEDS: ASCORBIC ACID 500 MG TABLET PO SCH (08:23)
[2021-01-21] MEDS: OXYBUTYNIN CHLORIDE 5 MG TABLET PO SCH ×2 (08:24→17:02)
[2021-01-21] MEDS: FERROUS SULFATE 325 MG TABEC PO SCH (08:24)
[2021-01-21] MEDS: DOCUSATE SODIUM 100 MG CAPSULE PO SCH ×2 (08:24→17:00)
[2021-01-21] MEDS: hydrALAZINE HCL 50 MG TABLET PO SCH ×3 (08:25→17:00)
[2021-01-21] MEDS: DICYCLOMINE HCL 20 MG TABLET PO SCH (08:25)
[2021-01-21] MEDS: FLUTICASONE PROP NASAL SPRAY 16 GM BOTTLE NS SCH (08:27)
[2021-01-21] MEDS: AMLODIPINE 10 MG TABLET PO SCH (08:29)
[2021-01-21] MEDS: METOPROLOL SUCCINATE XL 50 MG TAB.SR.24H PO SCH (08:31)
[2021-01-21] MEDS: MIRALAX 17 GM POWD.PACK PO SCH ×2 (08:31→09:00)
--- NOTE | 2021-01-21 11:07 | NUR ---
GPS: PT ALERT AND VERBALLY RESPONSIVE. DENIES ANY DISCOMFORT. PT HAD A GOOD BREAKFAST. TAKES MEDICATION AND COOPERATIVE WITH CARE. WENT TO GROUP THERAPY AND PARTICIPATES. NO SI AT THIS TIME.
--- NOTE | 2021-01-21 14:30 | NUR ---
GPS: PT WITH EPISODE OF WATERY STOOL AND DIARRHEA X3, WITH FOUL SMELL. DR Dang CERDA ORDERED CHANGE MIRALAX TO PRN, STOOL SAMPLE FOR C DIFF AND IMODIUM PRN FOR DIARRHEA.
[2021-01-21] MEDS ORDERED: MIRALAX 17 GM POWD.PACK PO PRN (15:00)
[2021-01-21] MEDS ORDERED: LOPERAMIDE HCL 2 MG CAPSULE PO PRN (15:00)
[2021-01-21 15:03] VITALS: BP 90/45
--- NOTE | 2021-01-21 15:09 | NUR ---
GPS: DOSE OF IMODIUM GIVEN TO PT, TOLERATED WELL. INFORMED ABOUT OTHER ORDERS THAT MD MADE. PT UNDERSTOOD.
--- NOTE | 2021-01-21 17:05 | NUR ---
GPS: HOLD PT HYDRALAZINE DUE TO DECREASE BLOOD PRESSURE 90/45. ALSO HOLD THE COLACE DUE TO EPISODE OF DIARRHEA.
[2021-01-21 20:34] VITALS: BP 116/54
[2021-01-21] MEDS: DIVALPROEX ER 500 MG TAB.SR.24H PO SCH (22:05)
[2021-01-21] MEDS: QUETIAPINE FUMARATE 200 MG TABLET PO SCH (22:05)
[2021-01-21] MEDS: ATORVASTATIN 20 MG TABLET PO SCH (22:05)
[2021-01-22] MEDS: PANTOPRAZOLE SODIUM 40 MG TABLET.DR PO SCH (07:30)
[2021-01-22 07:42] VITALS: BP 135/54
[2021-01-22] MEDS: DOCUSATE SODIUM 100 MG CAPSULE PO SCH ×2 (08:56→16:59)
[2021-01-22] MEDS: FLUTICASONE PROP NASAL SPRAY 16 GM BOTTLE NS SCH (08:56)
[2021-01-22] MEDS: FLUOXETINE HCL 20 MG CAPSULE PO SCH (08:57)
[2021-01-22] MEDS: METOPROLOL SUCCINATE XL 50 MG TAB.SR.24H PO SCH (08:57)
[2021-01-22] MEDS: ASCORBIC ACID 500 MG TABLET PO SCH (08:57)
[2021-01-22] MEDS: LOSARTAN POTASSIUM 50 MG TABLET PO SCH (08:57)
[2021-01-22] MEDS: FERROUS SULFATE 325 MG TABEC PO SCH (08:57)
[2021-01-22] MEDS: hydrALAZINE HCL 25 MG TABLET PO SCH ×3 (08:58→16:59)
[2021-01-22] MEDS: DICYCLOMINE HCL 20 MG TABLET PO SCH (08:58)
[2021-01-22] MEDS: AMLODIPINE 10 MG TABLET PO SCH (08:58)
[2021-01-22] MEDS: OXYBUTYNIN CHLORIDE 5 MG TABLET PO SCH ×2 (08:59→16:59)
[2021-01-22] MEDS ORDERED: hydrALAZINE HCL 50 MG TABLET PO SCH (09:00)
--- NOTE | 2021-01-22 15:01 | NUR ---
patient is alert and oriented. she is anxious, guarded, but is cooperative, redirectable, and has appropriate interaction with others. patient denies suicidal and homicidal ideation. patient is compliant with medication, no adverse reaction noted. patient is able to ambulate with wheelchair independently. able to feed self and perform self care and ADL's independently. patient encouraged to participate in the unit groups and therapeutic milieu. patient provided with education about impulse control and communicating needs to staff appropriately.
--- NOTE | 2021-01-22 15:46 | NUR ---
Social Work Discharge Plan Patient was accepted at [facility], [address] [address] [facility] [address] ). Delvin at facility confirmed acceptance there today. Dr Mauro agrees with the discharge plan. At facility patient will be seen by facility psychiatrist, Dr Rivera. Patient wants to be discharged to [facility] and will go via ambulance at time of discharge.
[2021-01-22 16:06] VITALS: BP 140/58
[2021-01-22 20:02] VITALS: BP 123/54
[2021-01-22] MEDS: DIVALPROEX ER 500 MG TAB.SR.24H PO SCH (20:22)
[2021-01-22] MEDS: QUETIAPINE FUMARATE 200 MG TABLET PO SCH (20:22)
[2021-01-22] MEDS: ATORVASTATIN 20 MG TABLET PO SCH (20:22)
[2021-01-22] MEDS: TRAMADOL HCL 50 MG TABLET PO PRN (21:20)
--- NOTE | 2021-01-22 21:21 | NUR ---
RECEIVED PATIENT IN THE DAY ROOM WATCHING TV WITH OTHER PEERS, SHE IS NOTED A/O X 3 ABLE TO VERBALIZED FEELINGS. SHE DENIED SI/HI/VH/AH. SHE IS NOTED LESS ISOLATIVE LESS WITHDRAWN. SHE WAS ABLE TO VERBALLY CFS. ABLE TO COMPLY WITH MEDICATION REGIMENT. V/S NOTED STABLE. Z-GUARD WAS APPLY TO HER RASH UNDER ABDOMINAL FOLDS, TRAMADOL 50MG PO PRN GIVEN FOR LEG/KNEE PAIN 7/10 IN THE PAIN SCALE. PATIENT IS REASSURED FOR HER SAFETY. SAFETY AND FALL PRECAUTION IN PLACE. WILL CONTINUE TO MONITOR.
[2021-01-23] MEDS: PANTOPRAZOLE SODIUM 40 MG TABLET.DR PO SCH (06:32)
[2021-01-23 07:57] VITALS: BP 122/49
[2021-01-23] MEDS: ASCORBIC ACID 500 MG TABLET PO SCH (08:36)
[2021-01-23] MEDS: FERROUS SULFATE 325 MG TABEC PO SCH (08:36)
[2021-01-23] MEDS: FLUTICASONE PROP NASAL SPRAY 16 GM BOTTLE NS SCH (08:36)
[2021-01-23] MEDS: DOCUSATE SODIUM 100 MG CAPSULE PO SCH ×2 (08:37→16:56)
[2021-01-23] MEDS: OXYBUTYNIN CHLORIDE 5 MG TABLET PO SCH ×2 (08:41→16:56)
[2021-01-23] MEDS: hydrALAZINE HCL 25 MG TABLET PO SCH ×3 (08:41→16:56)
[2021-01-23] MEDS: FLUOXETINE HCL 20 MG CAPSULE PO SCH (08:42)
[2021-01-23] MEDS: METOPROLOL SUCCINATE XL 50 MG TAB.SR.24H PO SCH (08:42)
[2021-01-23] MEDS: AMLODIPINE 10 MG TABLET PO SCH (08:42)
[2021-01-23] MEDS: LOSARTAN POTASSIUM 50 MG TABLET PO SCH (08:43)
[2021-01-23] MEDS: DICYCLOMINE HCL 20 MG TABLET PO SCH (08:44)
--- NOTE | 2021-01-23 11:14 | NUR ---
Gps/Equipment Associate- Fluids offered and encouraged, liquids of choice
--- NOTE | 2021-01-23 13:49 | NUR ---
Gps/Monitoring Manager- Patient was swab for Covid 19 antigen
[2021-01-23 16:16] VITALS: BP 132/57
--- NOTE | 2021-01-23 16:24 | NUR ---
Gps/Candy Depositing Machine Operator- Received notifications from [facility] Assistant Public Defender (Edinson Rocha) requesting to provide copies of H&P , medications profile , face sheet, information re- discharge summary .Will informed Awnings Mechanic Bell Wagoner
[2021-01-23 19:59] VITALS: BP 142/69
[2021-01-23] MEDS: QUETIAPINE FUMARATE 200 MG TABLET PO SCH (20:05)
[2021-01-23] MEDS: ATORVASTATIN 20 MG TABLET PO SCH (20:05)
[2021-01-23] MEDS: DIVALPROEX ER 500 MG TAB.SR.24H PO SCH (20:05)
[2021-01-24] MEDS: PANTOPRAZOLE SODIUM 40 MG TABLET.DR PO SCH (06:48)
[2021-01-24 07:30] VITALS: BP 136/54
[2021-01-24] MEDS: DOCUSATE SODIUM 100 MG CAPSULE PO SCH (09:00)
[2021-01-24] MEDS: METOPROLOL SUCCINATE XL 50 MG TAB.SR.24H PO SCH (09:07)
[2021-01-24] MEDS: hydrALAZINE HCL 25 MG TABLET PO SCH ×2 (09:07→12:38)
[2021-01-24] MEDS: FERROUS SULFATE 325 MG TABEC PO SCH (09:07)
[2021-01-24] MEDS: ASCORBIC ACID 500 MG TABLET PO SCH (09:08)
[2021-01-24] MEDS: AMLODIPINE 10 MG TABLET PO SCH (09:08)
[2021-01-24] MEDS: LOSARTAN POTASSIUM 50 MG TABLET PO SCH (09:08)
[2021-01-24] MEDS: OXYBUTYNIN CHLORIDE 5 MG TABLET PO SCH (09:09)
[2021-01-24] MEDS: DICYCLOMINE HCL 20 MG TABLET PO SCH (09:09)
[2021-01-24] MEDS: FLUOXETINE HCL 20 MG CAPSULE PO SCH (09:18)
[2021-01-24] MEDS: FLUTICASONE PROP NASAL SPRAY 16 GM BOTTLE NS SCH (09:18)
--- NOTE | 2021-01-24 11:47 | NUR ---
SW Discharge Note Patient will be discharged to [place] [address] ([phone]). Fernando at [facility] confirmed acceptance. Dr. Mauro agrees with the discharge plan. Patient will be provided ambulance transportation at 11AM. Patient is alert and oriented x4 and is willing to return to [facility]. Patient denies any suicidal or homicidal ideation. Patient presents with sad mood and flat affect. Patient is aware and agreeable with discharge plans. Patient will follow-up with her primary physician, Dr. Gabino Amin ([phone]) and Dr. Rivera and her psychiatrist PORCELAIN ENAMEL REPAIRER, Yanni who works under Dr. Rosado at [place] [address] ([phone]).
[2021-01-24] MEDS: TRAMADOL HCL 50 MG TABLET PO PRN (12:37)
[2021-01-24 12:38] VITALS: BP 158/75
== END 2021-01-24 15:00 | disposition home health service (06) | DRG 885 ==
LOC: ER 19:46 → GPS 22:25
PROVIDERS: ADMIT Psychiatry & Neurology Psychiatry; ATTEND Nurse Practitioner Family
DX: F31.5 Bipolar disorder, current episode depressed, severe, with psychotic features (principal); N17.0 Acute kidney failure with tubular necrosis; R45.851 Suicidal ideations; D68.59 Other primary thrombophilia; E44.0 Moderate protein-calorie malnutrition; I12.9 Hypertensive chronic kidney disease with stage 1 through stage 4 chronic kidney disease, or unspecified chronic kidney disease; N18.2 Chronic kidney disease, stage 2 (mild); D63.8 Anemia in other chronic diseases classified elsewhere; E66.01 Morbid (severe) obesity due to excess calories; Z68.39 Body mass index [BMI] 39.0-39.9, adult; E78.5 Hyperlipidemia, unspecified; F43.10 Post-traumatic stress disorder, unspecified; G43.909 Migraine, unspecified, not intractable, without status migrainosus; G89.29 Other chronic pain; M79.7 Fibromyalgia; N32.81 Overactive bladder; R73.03 Prediabetes; M19.90 Unspecified osteoarthritis, unspecified site; Z79.899 Other long term (current) drug therapy; Z91.81 History of falling; Z86.718 Personal history of other venous thrombosis and embolism; Z91.51 Personal history of suicidal behavior; I95.9 Hypotension, unspecified; Z91.030 Bee allergy status
CPT/HCPCS: 36415; 70030-TC; 71045; 83550; 84443; 85025; 85730; 87086; 93005; 97161; A4663; A9150; G0480; J3535

== ENCOUNTER 2021-07-31 13:42 | Inpatient (IN) | payer MEDICARE, OTHER ==
[~2021-07-31] VITALS: Ht 154.9 cm; Wt 104.3 kg
[~2021-07-31 13:42] MED LIST changes: +ACET-2154 PO; -ACET-73 PO; +ALBU6.7H9 IH; -AMLO-212 PO; +AMLO10TA59 PO; +ASCO500P18 PO; +ASCO500T10 PO; +ASPI81TA31 PO; -DICL100G16 TP; +DICY20TA11 PO; +DIVA500T2 PO; +DOCU100C36 PO; -EPIN0.3P3 IJ; -EZET10TA15 PO; +FERR325T28 PO; +FLUO20TA28 PO; +FLUT16SP16 NS; +HYDR-4077 PO; -HYDR25TA4 PO; -LISI20TA30 PO; +LOSA100T31 PO; +MAGN400C PO; +MAGN400T8 PO; +MELA3TAB41 PO; +METO50TA16 PO; +NITR0.4T SL; +PANT40TA49 PO; +POLY17PO4 GT; +POLY17PO4 PO; +QUET200T PO; -ROPI1TAB6 PO; +TRAM50TA2 PO
[2021-07-31 14:45] LABS: HEMATOCRIT 32.5 % (31.2-41.9); MEAN CORPUSCULAR HEMOGLOBIN 27.1 uug (24.7-32.8); MEAN CORPUSCULAR VOLUME 84.8 fL (75.5-95.3); PLATELET COUNT (AUTO) 156 K/uL (179-408)
[2021-07-31 14:55] LABS: ETHANOL < 3 MG/DL (0-0)
[2021-07-31 14:58] LABS: ALANINE AMINOTRANSFERASE 11 U/L (14-59); ALKALINE PHOSPHATASE 95 U/L (50-136); ASPARTATE AMINOTRANSFERASE < 5 U/L (15-37); BILIRUBIN,DIRECT 0.1 mg/dL (0.0-0.2); BILIRUBIN,TOTAL 0.2 mg/dL (0.2-1.0); CARBON DIOXIDE 23 mmol/L (21-32); CHLORIDE 105 mmol/L (98-107); CREATININE 1.4 mg/dL (0.6-1.3); GLUCOSE 131 mg/dL (74-106); POTASSIUM 4.3 mmol/L (3.5-5.1); TOTAL PROTEIN, SERUM 7.5 g/dL (6.4-8.2); UREA NITROGEN, BLOOD 37 mg/dL (7-18)
--- NOTE | 2021-07-31 15:02 | NUR ---
MD@bedside, medical screening exam in progress
[2021-07-31 15:04] LABS: ACETAMINOPHEN < 2.0 ug/mL (10-30)
--- NOTE | 2021-07-31 15:13 | NUR ---
Pending medical clearance still, Jake Bustamante (the psych workers compensation consultant) is here in the Emergency room.
[2021-07-31] MEDS ORDERED: CYAN-51 PO (15:15)
[2021-07-31] MEDS ORDERED: CLOT15CR27 TP (15:15)
[2021-07-31] MEDS ORDERED: ASCO500C18 PO (15:15)
[2021-07-31] MEDS ORDERED: FLUO20CA36 PO ×2 (15:15→20:44)
--- NOTE | 2021-07-31 15:20 | NUR ---
PT DID NOT COME WITH ANY PAPER WORK, CALLED [facility] [phone], THE EQUIPMENT ASSOCIATE SAID THAT THE MEAT GRADER SHOULD HAVE THE PAPERS. CALLED AGAIN AND REQUESTED THE MED LIST TO BE FAXED. IT WAS FAXED BUT VERY HARD TO READ. MED RECON PREPARED TO THE BEST OF ABILITY. Addendum: 07/31/21 at 1524 by ASHER COULD NOT REACH THE MEAT GRADER.
[2021-07-31 15:25] LABS: THYROID STIMULATING HORMONE 2.496 mIU/mL (0.358-3.740)
--- NOTE | 2021-07-31 16:02 | NUR ---
UA sent to lab.
[2021-07-31 16:13] LABS: *BILIRUBIN,URIN NEGATIVE (NEGATIVE); *BLOOD, URINE NEGATIVE (NEGATIVE); *CLARITY,URINE CLEAR (CLEAR); *COLOR,URINE YELLOW (YELLOW); *KETONES,URINE NEGATIVE (NEGATIVE); *UROBILINOGEN,URINE 0.2 E.U./dl (NORMAL); LEUKOCYTE ESTERASE ,URINE NEGATIVE (NEGATIVE); NITRITE, URINE NEGATIVE (NEGATIVE); UGLUCOSE NEGATIVE (NEGATIVE)
[2021-07-31 16:20] LABS: *AMPHETAMINE, URINE NEGATIVE (NEGATIVE); *CANNABINOID, URINE NEGATIVE (NEGATIVE); *COCCAINE, URINE NEGATIVE (NEGATIVE); *OPIATE, URINE NEGATIVE (NEGATIVE); *PHENCYCLIDINE SCREEN,URINE NEGATIVE (NEGATIVE)
--- NOTE | 2021-07-31 17:04 | NUR ---
Called nurse Lon to give report, patient will be in room 141B [facility].
--- NOTE | 2021-07-31 18:10 | NUR ---
GPS: RECEIVED REPORT FROM JAY AT 1650 ABOUT PT ADMISSION TO [facility]HU. PER ED RN, PT WAS RECEIVED VIA AMBULANCE FROM [facility] FOR VOLUNTARY HOLD DUE TO PT HAD SELF INFLICTED CUT ON LEFT HAND. PER RN, PT STATES IT WAS NOT A SUICIDE ATTEMPT, SHE GOT FRUSTRATED AND DEPRESSED BUT DENIES SUICIDAL IDEATION. PLEASANT PT ARRIVED IN THE UNIT 1809, PLEASANT, ALERT AND ORIENTED X 3. DENIES ANY PAIN OR DISCOMFORT. HAD PNEUMONIA VACCINE MORE THAN 5 YRS AGO AND FLU VACCINE END OF 2020. PT IS AMBULATORY WITH ASSIST AND USES A WHEELCHAIR TO WHEEL HERSELF. ORDERED PT EVALUATION. PSYCHIATRIST DR LÓPEZ AND DR VAZQUEZ, SENIOR APPLICATION SOFTWARE ENGINEER MADE AWARE. TESTED COVID NEGATIVE AT ER. PT ON REGULAR DIET AND TAKES WHOLE PILL. ON SUICIDAL PRECAUTION.
[2021-07-31] MEDS ORDERED: LORAZEPAM 1 MG TABLET PO PRN (18:30)
[2021-07-31] MEDS ORDERED: MAGNESIUM HYDROXIDE 30 ML LIQUID UDC PO PRN (18:30)
[2021-07-31] MEDS ORDERED: MAG HYDROX/AL HYDROX/SIMETH 30 ML LIQUID UDC PO PRN (18:30)
[2021-07-31] MEDS ORDERED: BLOOD SUGAR DIAGNOSTIC 1 EACH STRIP VI ONE (19:00)
[2021-07-31 20:00] VITALS: BP 167/81
[2021-07-31] MEDS ORDERED: ACET-2154 PO (20:26)
[2021-07-31] MEDS ORDERED: ALBU8HFA4 PO (20:43)
[2021-07-31] MEDS ORDERED: CLOT12CR TP (20:44)
[2021-07-31] MEDS ORDERED: METO50TA16 PO (20:44)
[2021-07-31] MEDS ORDERED: ATOR20TA PO (20:44)
[2021-07-31] MEDS ORDERED: DICY20TA11 PO (20:44)
[2021-07-31] MEDS ORDERED: TRAM50TA2 PO (20:44)
[2021-07-31] MEDS ORDERED: DOCU100C36 PO (20:44)
[2021-07-31] MEDS ORDERED: FERR325T28 PO (20:44)
[2021-07-31] MEDS ORDERED: FLUT16SP16 NS (20:44)
[2021-07-31] MEDS ORDERED: NITR0.4T48 SL (20:44)
[2021-07-31] MEDS ORDERED: ASPI81TA31 PO (20:44)
[2021-07-31] MEDS ORDERED: ASCO-375 PO (20:44)
[2021-07-31] MEDS ORDERED: TRIA15CR2 TP (20:44)
[2021-07-31] MEDS ORDERED: AMLO10TA59 PO (20:44)
[2021-07-31] MEDS ORDERED: POLY17PO4 PO (20:44)
[2021-07-31] MEDS ORDERED: QUET200T31 PO (20:44)
[2021-07-31] MEDS ORDERED: MELA3TAB41 PO (20:44)
[2021-07-31] MEDS ORDERED: MAGN400T26 PO (20:44)
[2021-07-31] MEDS ORDERED: PANT40TA49 PO (20:44)
[2021-07-31] MEDS ORDERED: OXYB5TAB16 PO (20:44)
[2021-07-31] MEDS ORDERED: ACETAMINOPHEN 325 MG TABLET-SA PATIENTS-PAIN ONLY PO PRN (21:30)
[2021-07-31] MEDS ORDERED: ALBUTEROL SULFATE 2.5 MG/3 ML NEBU NEB PRN (21:45)
[2021-08-01] MEDS: ACETAMINOPHEN 325 MG TABLET PO PRN ×4 (00:34→21:13)
--- NOTE | 2021-08-01 04:49 | NUR ---
Received to care up in wheel chair, pleasant and cooperative. Continues to deny wanting to hurt self. States she was only frustrated, when she tried to injure herself. Assisted to bathroom and bed. Tylenol given at bedtime, for bilateral knee pain. Has slept well during the night. No distress noted.
[2021-08-01 07:00] LABS: ALANINE AMINOTRANSFERASE 15 U/L (14-59); ALKALINE PHOSPHATASE 96 U/L (50-136); ASPARTATE AMINOTRANSFERASE 6 U/L (15-37); BILIRUBIN,TOTAL 0.2 mg/dL (0.2-1.0); CARBON DIOXIDE 25 mmol/L (21-32); CHLORIDE 106 mmol/L (98-107); CREATININE 1.6 mg/dL (0.6-1.3); GLUCOSE 99 mg/dL (74-106); POTASSIUM 3.8 mmol/L (3.5-5.1); TOTAL PROTEIN, SERUM 7.3 g/dL (6.4-8.2); UREA NITROGEN, BLOOD 32 mg/dL (7-18)
[2021-08-01 07:30] VITALS: BP 157/79
--- NOTE | 2021-08-01 08:13 | NUR ---
GPS: ABLE TO SPOKE WITH GURINDER, PT'S SISTER. GURINDER ALREADY AWARE OF PT ADMISSION PT CALLED HER BEFORE TRANSFERRING TO [facility].
[2021-08-01] MEDS: METOPROLOL TARTRATE 25 MG TABLET PO SCH ×2 (08:33→21:21)
[2021-08-01] MEDS: MAGNESIUM OXIDE 400 MG TABLET PO SCH (08:33)
[2021-08-01] MEDS: ASCORBIC ACID 500 MG TABLET PO SCH (08:33)
[2021-08-01] MEDS: PANTOPRAZOLE SODIUM 40 MG TABLET.DR PO SCH (08:33)
[2021-08-01] MEDS: DOCUSATE SODIUM 100 MG CAPSULE PO SCH ×2 (08:33→16:46)
[2021-08-01] MEDS: FERROUS SULFATE 325 MG TABEC PO SCH (08:33)
[2021-08-01] MEDS: ASPIRIN 81 MG TAB.CHEW PO SCH (08:33)
[2021-08-01] MEDS: AMLODIPINE 10 MG TABLET PO SCH (08:33)
[2021-08-01] MEDS: MIRALAX 17 GM POWD.PACK PO SCH ×2 (08:34→16:46)
[2021-08-01] MEDS: DICYCLOMINE HCL 20 MG TABLET PO SCH ×3 (08:38→16:46)
[2021-08-01] MEDS: OXYBUTYNIN CHLORIDE 5 MG TABLET PO SCH ×2 (08:38→16:46)
--- NOTE | 2021-08-01 09:00 | NUR ---
GPS: PT ALERT AND AWAKE, SEEN ON A WHEELCHAIR WHEELING ALONG THE HALLWAY, PT PLEASANT AND NICE. DOES NOT SEEM TO BE ANXIOUS. APPROACHABLE AND ABLE TO MAKE NEEDS KNOW. PT TRANSFERRED TO ANOTHER ROOM PER PT REQUEST. ASSISTED WITH TRANSFER FROM BED TO WHEELCHAIR.
[2021-08-01] MEDS ORDERED: DIVA500T4 PO (13:10)
[2021-08-01] MEDS ORDERED: HYDR100T27 PO (13:10)
[2021-08-01 15:28] VITALS: BP 170/82
[2021-08-01] MEDS: TRAMADOL HCL 50 MG TABLET PO PRN (15:57)
--- NOTE | 2021-08-01 16:02 | NUR ---
TRACIE Initial Discharge Note: Pt is a 75 year old female admitted to [facility] voluntary due to suicidal ideation. Pt currently resides at [facility] [phone]) [address] [place] [address]. Pt stated she will be discharging back to her assisted living. SW confirmed pt is welcome back to the assisted living upon discharge. TRACIE will provide pt with an outpatient psychiatrist appointment upon discharge as pt stated she does not currently have one. Pt reported she is only has an MD. Pt's sister, Geoffrey [phone] is aware of pt's hospitalization and will continue to be involved via telephone only due to living 4 hours away per pt. TRACIE will continue to work with pt, family and MD to ensure a safe and proper discharge plan.
--- NOTE | 2021-08-01 16:04 | NUR ---
SW Admit Source: Pt is a 75 year old female admitted to [facility] voluntary due to suicidal ideation. Pt currently resides at [facility] ([phone]) [address] [place] [address]. Pt stated she will be discharging back to her assisted living. SW confirmed pt is welcome back to the assisted living upon discharge. SW will provide pt with an outpatient psychiatrist appointment upon discharge as pt stated she does not currently have one. Pt reported she is only has an MD. Pt's sister, Geoffrey [phone] is aware of pt's hospitalization and will continue to be involved via telephone only due to living 4 hours away per pt. TRACIE will continue to work with pt, family and MD to ensure a safe and proper discharge plan.
--- NOTE | 2021-08-01 16:05 | NUR ---
TRACIE POA Update Note: TRACIE contacted [facility] ([phone]) to request copy of POA paperwork and spoke with Fanta in admissions. Fanta stated pt no longer has conservatorship or DPOA.
[2021-08-01] MEDS: hydrALAZINE HCL 50 MG TABLET PO SCH (17:17)
--- NOTE | 2021-08-01 17:24 | NUR ---
GPS: PT COMPLAINS OF PAIN ON BILATERAL LOWER LEG. TYLENOL WAS GIVEN BUT AFTER AN HOUR REQUESTED FOR ULTRAM. GIVEN AND TOLERATED WELL. ASSISTED TO BATHROOM. BOWEL MOVEMENT NOTED. PT DENIES ANY SUICIDAL IDEATION. PT ENABLE TO HAVE A CONVERSATION, CLEAR SPEECH AND ABLE TO MAKE NEEDS KNOWN.
[2021-08-01 19:49] VITALS: BP_SYST 131; BP_SYST 142; BP_DIAS 64; BP_DIAS 69
[2021-08-01 20:44] LABS: BAND % (MANUAL) 3 % (0-10); EOSINOPHILS % (MANUAL) 2 % (0-8); LYMPHOCYTES % (MANUAL) 26 % (20-40); METAMYELOCYTES % 1 % (0-1); MONOCYTES % (MANUAL) 3 % (2-10); NEUTROPHILS % (MANUAL) 65 % (42-75)
[2021-08-01] MEDS: MELATONIN 3 MG TABLET PO SCH (21:13)
[2021-08-01] MEDS: ATORVASTATIN 20 MG TABLET PO SCH (21:13)
[2021-08-01] MEDS: TEMAZEPAM 7.5 MG CAPSULE PO PRN (22:53)
[2021-08-02] MEDS: TRAMADOL HCL 50 MG TABLET PO PRN ×3 (00:23→18:51)
[2021-08-02] MEDS: ACETAMINOPHEN 325 MG TABLET PO PRN (04:32)
[2021-08-02] MEDS ORDERED: TRAMADOL HCL 50 MG TABLET PO PRN (06:39)
[2021-08-02] MEDS: PANTOPRAZOLE SODIUM 40 MG TABLET.DR PO SCH (07:00)
[2021-08-02 07:30] VITALS: BP 159/89
[2021-08-02] MEDS: MAGNESIUM OXIDE 400 MG TABLET PO SCH (08:17)
[2021-08-02] MEDS: ASPIRIN 81 MG TAB.CHEW PO SCH (08:17)
[2021-08-02] MEDS: FLUOXETINE HCL 20 MG CAPSULE PO SCH (08:17)
[2021-08-02] MEDS: hydrALAZINE HCL 50 MG TABLET PO SCH ×2 (08:17→20:28)
[2021-08-02] MEDS: DOCUSATE SODIUM 100 MG CAPSULE PO SCH ×2 (08:17→16:28)
[2021-08-02] MEDS: FERROUS SULFATE 325 MG TABEC PO SCH (08:17)
[2021-08-02] MEDS: ASCORBIC ACID 500 MG TABLET PO SCH (08:17)
[2021-08-02] MEDS: OXYBUTYNIN CHLORIDE 5 MG TABLET PO SCH ×2 (08:18→16:28)
[2021-08-02] MEDS: AMLODIPINE 10 MG TABLET PO SCH (08:18)
[2021-08-02] MEDS: MIRALAX 17 GM POWD.PACK PO SCH ×2 (08:21→16:28)
[2021-08-02] MEDS: DICYCLOMINE HCL 20 MG TABLET PO SCH ×3 (08:21→16:29)
[2021-08-02] MEDS: METOPROLOL TARTRATE 25 MG TABLET PO SCH ×2 (08:21→20:29)
[2021-08-02] MEDS ORDERED: OXYBUTYNIN CHLORIDE 5 MG TABLET PO SCH (09:00)
[2021-08-02 16:00] VITALS: BP 152/71
[2021-08-02 20:00] VITALS: BP 174/75
--- NOTE | 2021-08-02 20:00 | NUR ---
Patient alert oriented, no complain of pain, calm seated at the wheelchair, noted with elevated bp of 174/75. hr 71, no dizziness, no nausea no vomiting noted, given patient her BP meds, awaiting for results.
[2021-08-02] MEDS: ATORVASTATIN 20 MG TABLET PO SCH (20:28)
[2021-08-02] MEDS: MELATONIN 3 MG TABLET PO SCH (20:29)
[2021-08-02 22:56] VITALS: BP 143/39
--- NOTE | 2021-08-02 23:01 | NUR ---
Patient in bed, asleep but arousable, recheck BP 148/39, hr 81, no complain of pain, BP meds effective, cont to monitor.
[2021-08-03] MEDS: TEMAZEPAM 7.5 MG CAPSULE PO PRN (00:02)
--- NOTE | 2021-08-03 07:08 | NUR ---
Patient has 4 episode of soft pasty consistency bm in small to moderate amount, no complain of abdominal craps, explained to patient that were going to hold the Miralax medication at this time to prevent further frequent bm, able to follow, endorsed to next shift to hold Miralax and observe for lbm.
[2021-08-03] MEDS: OXYBUTYNIN CHLORIDE 5 MG TABLET PO SCH ×2 (08:16→16:46)
[2021-08-03] MEDS: ASPIRIN 81 MG TAB.CHEW PO SCH (08:16)
[2021-08-03] MEDS: FLUOXETINE HCL 20 MG CAPSULE PO SCH (08:16)
[2021-08-03] MEDS: DICYCLOMINE HCL 20 MG TABLET PO SCH ×3 (08:16→16:46)
[2021-08-03] MEDS: MAGNESIUM OXIDE 400 MG TABLET PO SCH (08:16)
[2021-08-03] MEDS: ASCORBIC ACID 500 MG TABLET PO SCH (08:16)
[2021-08-03] MEDS: AMLODIPINE 10 MG TABLET PO SCH (08:17)
[2021-08-03] MEDS: FERROUS SULFATE 325 MG TABEC PO SCH (08:17)
[2021-08-03] MEDS: PANTOPRAZOLE SODIUM 40 MG TABLET.DR PO SCH (08:17)
[2021-08-03] MEDS: hydrALAZINE HCL 50 MG TABLET PO SCH ×2 (08:17→20:06)
[2021-08-03] MEDS: DOCUSATE SODIUM 100 MG CAPSULE PO SCH ×2 (08:19→16:46)
[2021-08-03] MEDS: METOPROLOL TARTRATE 25 MG TABLET PO SCH ×2 (08:19→20:05)
[2021-08-03] MEDS: MIRALAX 17 GM POWD.PACK PO SCH ×2 (08:19→16:59)
[2021-08-03] MEDS: TRAMADOL HCL 50 MG TABLET PO PRN ×2 (08:42→16:49)
[2021-08-03 16:04] VITALS: BP 139/70
[2021-08-03 20:00] VITALS: BP 164/88
[2021-08-03] MEDS: ATORVASTATIN 20 MG TABLET PO SCH (20:06)
[2021-08-03] MEDS: MELATONIN 3 MG TABLET PO SCH (20:06)
[2021-08-03] MEDS: ACETAMINOPHEN 325 MG TABLET PO PRN (20:08)
[2021-08-03 21:22] VITALS: BP 159/71
--- NOTE | 2021-08-03 21:26 | NUR ---
Patient was noted with elevated BP at the start of the shift with reading of 168/88mmHg, all bp meds given as scheduled. Rechecked 159/71 mmHg, denies discomfort, resting comfortably. no acute distress identified. will continue to monitor.
--- NOTE | 2021-08-04 06:06 | NUR ---
Patient was compliant with her meds. No behavioral issues identified during the shift. No concerns noted. Slept 5.15 hrs. Requested Tramadol at the start of the shift but its not due yet, took Tylenol instead, effective, denies pain. Patient stated she will go home today, she is her voluntary, will endorse to the the am shift. Maintained safety measures, patient uses the wheelchair to move around, noted with weakness when transferring and noted with unsteady gait. Frequent checks done. Denies SI. No acute distress noted. will endorse to the next shift for continuity of care.
[2021-08-04 07:41] VITALS: BP 144/61
[2021-08-04] MEDS: FLUOXETINE HCL 20 MG CAPSULE PO SCH (08:15)
[2021-08-04] MEDS: ASPIRIN 81 MG TAB.CHEW PO SCH (08:15)
[2021-08-04] MEDS: OXYBUTYNIN CHLORIDE 5 MG TABLET PO SCH ×2 (08:15→16:36)
[2021-08-04] MEDS: FERROUS SULFATE 325 MG TABEC PO SCH (08:16)
[2021-08-04] MEDS: AMLODIPINE 10 MG TABLET PO SCH (08:16)
[2021-08-04] MEDS: ASCORBIC ACID 500 MG TABLET PO SCH (08:17)
[2021-08-04] MEDS: hydrALAZINE HCL 50 MG TABLET PO SCH ×2 (08:17→20:48)
[2021-08-04] MEDS: MAGNESIUM OXIDE 400 MG TABLET PO SCH (08:17)
[2021-08-04] MEDS: DOCUSATE SODIUM 100 MG CAPSULE PO SCH ×2 (08:17→16:36)
[2021-08-04] MEDS: METOPROLOL TARTRATE 25 MG TABLET PO SCH ×2 (08:17→20:48)
[2021-08-04] MEDS: MIRALAX 17 GM POWD.PACK PO SCH ×2 (08:30→16:37)
[2021-08-04] MEDS: DICYCLOMINE HCL 20 MG TABLET PO SCH ×2 (08:31→12:28)
[2021-08-04] MEDS: PANTOPRAZOLE SODIUM 40 MG TABLET.DR PO SCH (08:31)
[2021-08-04] MEDS: ACETAMINOPHEN 325 MG TABLET PO PRN (11:45)
[2021-08-04] MEDS ORDERED: DICYCLOMINE HCL 10 MG CAPSULE PO SCH (13:00)
[2021-08-04] MEDS: DICYCLOMINE HCL 10 MG CAPSULE PO SCH (17:00)
[2021-08-04 17:05] VITALS: BP 157/70
--- NOTE | 2021-08-04 17:52 | NUR ---
PATIENT IS UP TO WHEEL CHAIR ABLE TO WHEEL SELF AROUND THE UNUT,PATIENT IS ALERT AND ORIENTED X4 ,ISOLATIVE AND WITHDRAWN ,WILL CONTINUE CLOSE MONITORING.
[2021-08-04 20:00] VITALS: BP 165/81
[2021-08-04] MEDS: ATORVASTATIN 20 MG TABLET PO SCH (20:47)
[2021-08-04] MEDS: MELATONIN 3 MG TABLET PO SCH (20:47)
[2021-08-04] MEDS: TRAMADOL HCL 50 MG TABLET PO PRN (21:06)
[2021-08-04] MEDS: TEMAZEPAM 7.5 MG CAPSULE PO PRN (22:10)
--- NOTE | 2021-08-04 22:57 | NUR ---
PATIENT IS UP IN WHEEL CHAIR ABLE TO WHEEL SELF AROUND THE UNIT, PATIENT INTERACTS WITH PEERS AND STAFF. PATIENT IS ALERT AND ORIENTED X4. SAFETY MEASURES RENDERED. BED IN LOWEST POSITION, BED LOCKED, AND BED ALARM ON WHILE IN BED. PATIENT DENIES SI. PATIENT ABLE TO VERBALIZE NEEDS. NO ACUTE DISTRESS NOTED. PATIENT COMPLAIN OF GENERALIZED LOWER BODY/LEG PAIN, PAIN MEDICATION GIVEN ORDERED.
[2021-08-05 07:30] VITALS: BP 152/77
[2021-08-05] MEDS: PANTOPRAZOLE SODIUM 40 MG TABLET.DR PO SCH (08:23)
[2021-08-05] MEDS: ASPIRIN 81 MG TAB.CHEW PO SCH (08:23)
[2021-08-05] MEDS: METOPROLOL TARTRATE 25 MG TABLET PO SCH ×2 (08:23→20:25)
[2021-08-05] MEDS: FERROUS SULFATE 325 MG TABEC PO SCH (08:24)
[2021-08-05] MEDS: ASCORBIC ACID 500 MG TABLET PO SCH (08:24)
[2021-08-05] MEDS: OXYBUTYNIN CHLORIDE 5 MG TABLET PO SCH ×2 (08:24→16:20)
[2021-08-05] MEDS: MAGNESIUM OXIDE 400 MG TABLET PO SCH (08:24)
[2021-08-05] MEDS: hydrALAZINE HCL 50 MG TABLET PO SCH ×2 (08:24→20:25)
[2021-08-05] MEDS: DOCUSATE SODIUM 100 MG CAPSULE PO SCH ×2 (08:24→16:20)
[2021-08-05] MEDS: DICYCLOMINE HCL 10 MG CAPSULE PO SCH (08:24)
[2021-08-05] MEDS: AMLODIPINE 10 MG TABLET PO SCH (08:24)
[2021-08-05] MEDS: FLUOXETINE HCL 20 MG CAPSULE PO SCH (08:25)
[2021-08-05] MEDS: MIRALAX 17 GM POWD.PACK PO SCH ×2 (08:33→16:20)
[2021-08-05] MEDS: TRAMADOL HCL 50 MG TABLET PO PRN ×2 (08:58→18:16)
[2021-08-05] MEDS: DICYCLOMINE HCL 20 MG TABLET PO SCH ×2 (13:33→16:20)
--- NOTE | 2021-08-05 15:00 | NUR ---
GPS: DR LÓPEZ CAME TO VISIT PT. PER MD, PT WILL BE DISCHARGE TOMORROW. WILL CONFIRM WITH [facility] OF 08/01, THEY CONFIRMED PLACEMENT WITH . WILL RECONFIRM AGAIN. COVID ANTIGEN TEST ORDERED PER .
--- NOTE | 2021-08-05 15:08 | NUR ---
Social Work Discharge Plan Patient will be returning to [facility], [address] [place] [address] ([phone]) once she is stable for discharge. Deepika, at the facility confirmed she may return there. Patient will need to go home via ambulance since she is wheelchair bound.
[2021-08-05 15:53] VITALS: BP 139/52
--- NOTE | 2021-08-05 17:47 | NUR ---
GPS: PT IS PLEASANT, NO AGITATION, NO SUICIDAL OR HOMICIDAL IDEATION NOTED. COOPERATIVE WITH CARE AND COMPLIANT WITH MEDICATIONS. PT WILL BE DISCHARGE TOMORROW TO [facility]BULANCE. PT COVID ANTIGEN TEST WAS NEGATIVE DONE TODAY. SEEN PT WHEELING HERSELF ON A WHEELCHAIR. ATTENDED GROUP THERAPY AND WATCHES TV AT THE ACTIVITY ROOM.
[2021-08-05 20:10] VITALS: BP 126/75
[2021-08-05] MEDS: ATORVASTATIN 20 MG TABLET PO SCH (20:25)
[2021-08-05] MEDS: MELATONIN 3 MG TABLET PO SCH (20:25)
--- NOTE | 2021-08-05 22:14 | NUR ---
PATIENT IS UP IN WHEEL CHAIR ABLE TO WHEEL SELF AROUND THE UNIT, PATIENT INTERACTS WITH PEERS AND STAFF. PATIENT IS ALERT AND ORIENTED X4. SAFETY MEASURES RENDERED. PATIENT DENIES SI. NO ACUTE DISTRESS NOTED. PATIENT ABLE TO MAKE NEEDS KNOWN.
[2021-08-06] MEDS: TRAMADOL HCL 50 MG TABLET PO PRN (00:21)
[2021-08-06 07:30] VITALS: BP 165/73
[2021-08-06] MEDS: FERROUS SULFATE 325 MG TABEC PO SCH (08:48)
[2021-08-06] MEDS: MAGNESIUM OXIDE 400 MG TABLET PO SCH (08:48)
[2021-08-06] MEDS: DICYCLOMINE HCL 20 MG TABLET PO SCH ×2 (08:48→12:17)
[2021-08-06] MEDS: OXYBUTYNIN CHLORIDE 5 MG TABLET PO SCH (08:48)
[2021-08-06] MEDS: ASPIRIN 81 MG TAB.CHEW PO SCH (08:48)
[2021-08-06] MEDS: METOPROLOL TARTRATE 25 MG TABLET PO SCH (08:49)
[2021-08-06] MEDS: DOCUSATE SODIUM 100 MG CAPSULE PO SCH (08:49)
[2021-08-06] MEDS: PANTOPRAZOLE SODIUM 40 MG TABLET.DR PO SCH (08:49)
[2021-08-06 08:53] VITALS: BP 165/73
[2021-08-06] MEDS: hydrALAZINE HCL 50 MG TABLET PO SCH (08:53)
[2021-08-06] MEDS: AMLODIPINE 10 MG TABLET PO SCH (08:53)
[2021-08-06] MEDS: MIRALAX 17 GM POWD.PACK PO SCH (08:54)
[2021-08-06] MEDS: ASCORBIC ACID 500 MG TABLET PO SCH (08:54)
[2021-08-06] MEDS: FLUOXETINE HCL 20 MG CAPSULE PO SCH (08:58)
--- NOTE | 2021-08-06 11:52 | NUR ---
TRACIE Discharge Note: Pt will be discharged today on 08/06/[address] [facility] [id number] [place] [address] via Ambulance transportation at 2PM. TRACIE spoke with admin coordinator, Nicol at the facility who states they are ready to accept the patient today. Pt is aware and agreeable with discharge plans. TRACIE contacted Pts sister, Geoffrey ([phone]) who is aware and agreeable with the discharge plan. Pt is alert and oriented x4, is unable to plan for self-care at this time; however, is willing to accept care at her assisted living. Pt denies any suicidal or homicidal ideation. Pt will follow-up at the facility with her Community Resource Consultant at the facility. TRACIE arranged pt with outpatient aftercare psychiatrist appt via telephone with [facility] ([phone]) on August 18 at 9:30am via. Sofia from [facility] stated that pt will be assigned a psychologist and psychiatrist upon her appointment. Pt is aware and agreeable. Pt presents with calm mood and congruent affect.
--- NOTE | 2021-08-06 14:47 | NUR ---
Pt discharged today on 08/06/21 to [facility] via Ambulance transportation at 2PM. Pt is aware and agreeable with discharge plans. Pt is alert and oriented x4, is unable to plan for self-care at this time; however, is willing to accept care at her assisted living. Pt denies any suicidal or homicidal ideation. Pt will follow-up at the facility with her Vault Mechanic at the facility. SW arranged pt with outpatient aftercare psychiatrist appt via telephone with [facility] on August 18 at 9:30am via. Sofia from [facility] stated that pt will be assigned a psychologist and psychiatrist .all personal belonging returned to patient.
== END 2021-08-06 14:30 | DRG 881 ==
LOC: ER 13:42 → GPS 17:38
PROVIDERS: ADMIT Psychiatry & Neurology Psychiatry; ATTEND Nurse Practitioner Acute Care
DX: F32.9 Major depressive disorder, single episode, unspecified (principal); N17.9 Acute kidney failure, unspecified; I11.0 Hypertensive heart disease with heart failure; K50.90 Crohn's disease, unspecified, without complications; D68.59 Other primary thrombophilia; E44.1 Mild protein-calorie malnutrition; R45.851 Suicidal ideations; I50.32 Chronic diastolic (congestive) heart failure; Z68.41 Body mass index [BMI] 40.0-44.9, adult; Z90.49 Acquired absence of other specified parts of digestive tract; E86.0 Dehydration; N32.81 Overactive bladder; D64.9 Anemia, unspecified; D69.6 Thrombocytopenia, unspecified; E78.5 Hyperlipidemia, unspecified; Z20.822 Contact with and (suspected) exposure to COVID-19; F39 Unspecified mood [affective] disorder; F32.A Depression, unspecified; E88.09 Other disorders of plasma-protein metabolism, not elsewhere classified; Z74.09 Other reduced mobility; K21.9 Gastro-esophageal reflux disease without esophagitis; G89.4 Chronic pain syndrome; M79.7 Fibromyalgia; M94.0 Chondrocostal junction syndrome [Tietze]; M19.90 Unspecified osteoarthritis, unspecified site; I70.0 Atherosclerosis of aorta; Z91.51 Personal history of suicidal behavior; E66.01 Morbid (severe) obesity due to excess calories; F20.9 Schizophrenia, unspecified; F41.9 Anxiety disorder, unspecified; S69.82XA Other specified injuries of left wrist, hand and finger(s), initial encounter; X78.9XXA Intentional self-harm by unspecified sharp object, initial encounter; Y93.9 Activity, unspecified; Y92.89 Other specified places as the place of occurrence of the external cause
CPT/HCPCS: 36415; 70030-TC; 71045; 84443; 84484; 85025; 85730; 87086; 93005; 97161; A4663; G0480

== ENCOUNTER 2021-08-27 13:56 | Inpatient (IN) | payer MEDICARE, OTHER ==
[~2021-08-27 13:56] MED LIST changes: -ALBU6.7H9 IH; +ALBU8HFA4 PO; +ASCO-375 PO; -ASCO500P18 PO; -ASCO500T10 PO; -DIVA500T2 PO; -FLUO20TA28 PO; -FLUT16SP NS; -HYDR-4077 PO; +HYDR100T27 PO; -LOSA100T31 PO; -MAGN400C PO; +MAGN400T26 PO; -MAGN400T8 PO; -METO-357 PO; -NITR0.4T SL; +NITR0.4T48 SL; -POLY17PO4 GT; -QUET200T PO
[2021-08-27] MEDS ORDERED: NITROGLYCERIN 0.4 MG/TAB BOTTLE SL PRN (14:30)
[2021-08-27] MEDS ORDERED: MAGNESIUM HYDROXIDE 30 ML LIQUID UDC PO PRN (14:30)
[2021-08-27] MEDS ORDERED: ALBUTEROL SULFATE 8 GM HFA.AER.AD IH PRN (14:30)
[2021-08-27] MEDS ORDERED: ACETAMINOPHEN 325 MG TABLET PO PRN (14:30)
[2021-08-27] MEDS ORDERED: ALBUTEROL SULFATE 2.5 MG/3 ML NEBU NEB PRN (14:45)
[2021-08-27] MEDS ORDERED: BLOOD SUGAR DIAGNOSTIC 1 EACH STRIP VI ONE (15:00)
[2021-08-27 16:00] VITALS: BP 186/99
[2021-08-27] MEDS: AMLODIPINE 10 MG TABLET PO SCH (16:42)
[2021-08-27] MEDS: METOPROLOL TARTRATE 50 MG TABLET PO SCH (16:42)
[2021-08-27 17:30] VITALS: BP 152/86
[2021-08-27] MEDS: DICYCLOMINE HCL 20 MG TABLET PO SCH (17:50)
[2021-08-27] MEDS: FLUTICASONE PROP NASAL SPRAY 16 GM BOTTLE NS PRN (17:50)
[2021-08-27] MEDS: OXYBUTYNIN CHLORIDE 5 MG TABLET PO SCH (17:50)
[2021-08-27] MEDS: DOCUSATE SODIUM 100 MG CAPSULE PO SCH (17:50)
[2021-08-27] MEDS: MIRALAX 17 GM POWD.PACK PO SCH (17:53)
[2021-08-27 18:00] VITALS: BP 153/98
--- NOTE | 2021-08-27 18:00 | NUR ---
Pt. BP was 186/99, pulse 99, Norvasc 10 mg and Metoprolol 50 mg given at 16:42, effective. BP is now 153/98.
--- NOTE | 2021-08-27 18:42 | NUR ---
Admitted a case of 76 years old female from [facility] with history of Hypertension, Chrohn's disease, Fibromyalgia, arthritis. Pt. previously diagnosed with Psychosis NOS. Patient is on voluntary status. Patient arrived in a stretcher accompanied by EMT. Initial report given by Daly DUQUE. Upon face to face, patient was cooperative to physical assessment and vital signs. Skin assessment revealed superficial laceration on left hand. Patient is on regular diet. Pt. appeared alert, oriented to person, place, redirectable. Patient denies SI/HI AH/VH.. Pt. signed and consented to all admission documents. Pt. was offered brief orientation to unit rules and policies and given copy of patient's rights handbook. Patient belongings were accounted and contrabands removed. Pt. denies pain. Fall and safety precautions implemented.
[2021-08-27 20:00] VITALS: BP 160/70
[2021-08-27] MEDS: LORAZEPAM 1 MG TABLET PO PRN (20:58)
[2021-08-27] MEDS: hydrALAZINE HCL 50 MG TABLET PO SCH (20:58)
[2021-08-27] MEDS: ATORVASTATIN 20 MG TABLET PO SCH (20:58)
[2021-08-27] MEDS: TEMAZEPAM 7.5 MG CAPSULE PO PRN (22:31)
--- NOTE | 2021-08-28 02:11 | NUR ---
Received patient at the start of the shift in bed. This patient has been here many times before. The residential mortgage underwriter was able to engage in meaningful conversation with the patient, who denied wanting to kill herself but felt overwhelmed with her financial situation and is lonely. The patient made a contract for safety with the residential mortgage underwriter. VS are being monitored and treated. Safety stratiges are in place. The patient is on a Voluntary status.
[2021-08-28] MEDS: PANTOPRAZOLE SODIUM 40 MG TABLET.DR PO SCH (06:02)
--- NOTE | 2021-08-28 06:20 | NUR ---
Total sleep hours were 6.15 last night. The patient is up early. Safety stratiges are in place at this time. No changes.
[2021-08-28 07:30] VITALS: BP 163/84
[2021-08-28 07:36] LABS: HEMATOCRIT 28.6 % (31.2-41.9); MEAN CORPUSCULAR HEMOGLOBIN 27.6 uug (24.7-32.8); PLATELET COUNT (AUTO) 180 K/uL (179-408)
[2021-08-28 07:44] LABS: CREATININE 1.3 mg/dL (0.6-1.3); POTASSIUM 3.8 mmol/L (3.5-5.1)
[2021-08-28] MEDS: DOCUSATE SODIUM 100 MG CAPSULE PO SCH ×2 (09:07→16:21)
[2021-08-28] MEDS: ASPIRIN 81 MG TAB.CHEW PO SCH (09:07)
[2021-08-28] MEDS: hydrALAZINE HCL 50 MG TABLET PO SCH ×2 (09:07→20:34)
[2021-08-28] MEDS: DICYCLOMINE HCL 20 MG TABLET PO SCH ×3 (09:07→16:21)
[2021-08-28] MEDS: OXYBUTYNIN CHLORIDE 5 MG TABLET PO SCH ×2 (09:07→16:21)
[2021-08-28] MEDS: MAGNESIUM OXIDE 400 MG TABLET PO SCH (09:08)
[2021-08-28] MEDS: ASCORBIC ACID 500 MG TABLET PO SCH (09:08)
[2021-08-28] MEDS: FERROUS SULFATE 325 MG TABEC PO SCH (09:08)
[2021-08-28] MEDS: AMLODIPINE 10 MG TABLET PO SCH (09:08)
[2021-08-28] MEDS: MIRALAX 17 GM POWD.PACK PO SCH ×2 (09:08→16:22)
[2021-08-28] MEDS: METOPROLOL TARTRATE 50 MG TABLET PO SCH (09:14)
[2021-08-28] MEDS: ARIPIPRAZOLE 2 MG TABLET PO SCH (11:16)
[2021-08-28] MEDS: FLUOXETINE HCL 20 MG CAPSULE PO SCH (11:16)
--- NOTE | 2021-08-28 15:58 | NUR ---
Collected urine sample as ordered, sent to the lab, awaiting result.
[2021-08-28 16:00] VITALS: BP 136/60
[2021-08-28 16:44] LABS: *BILIRUBIN,URIN NEGATIVE (NEGATIVE); *BLOOD, URINE NEGATIVE (NEGATIVE); *CLARITY,URINE CLEAR (CLEAR); *COLOR,URINE YELLOW (YELLOW); *KETONES,URINE NEGATIVE (NEGATIVE); *UROBILINOGEN,URINE 0.2 E.U./dl (NORMAL); LEUKOCYTE ESTERASE ,URINE NEGATIVE (NEGATIVE); NITRITE, URINE NEGATIVE (NEGATIVE); UGLUCOSE NEGATIVE (NEGATIVE)
[2021-08-28 16:58] LABS: *CREATININE,URINE 100.7 mg/dL (30-125)
--- NOTE | 2021-08-28 18:48 | NUR ---
Patient was complaint with medication. Encouraged to verbalized concerns. Contract for safety with the patient. Safety measure maintained. Denies SI/HI. will endorse to the next shift for continuity of care.
[2021-08-28] MEDS: MAG HYDROX/AL HYDROX/SIMETH 30 ML LIQUID UDC PO PRN (19:44)
[2021-08-28 20:00] VITALS: BP 186/83
[2021-08-28] MEDS: TRAMADOL HCL 50 MG TABLET PO PRN (20:34)
[2021-08-28] MEDS: ATORVASTATIN 20 MG TABLET PO SCH (20:34)
[2021-08-28] MEDS: MELATONIN 3 MG TABLET PO SCH (20:35)
[2021-08-28] MEDS: TEMAZEPAM 7.5 MG CAPSULE PO PRN (21:04)
--- NOTE | 2021-08-28 21:48 | NUR ---
GPS NOTE : Patient tried to go from the bed to her wheelchair without assistance. Per patient " My knees gave way and I fell. "The LEAD DRIVER Jacky, found patient sitting on the floor on her buttocks. Staff assisted the patient into the chair. The patient was able to stand and pivot into her wheelchair with minimal staff assistance at that time. VS were monitored , appropriate persons were notified and no orders needed or received. Safety Stratiges are in place and the patient is resting in bed at this time. No visual injury or reports of injury were/ are noted by the patient. Continuing to monitor and treat pain when needed. Comfort measures offered to the patient, but the patient declined. Ultram 50mg was given however to help with the chronic knee pain the patient has had for years.
[2021-08-29] MEDS: LORAZEPAM 1 MG TABLET PO PRN (00:56)
[2021-08-29] MEDS: PANTOPRAZOLE SODIUM 40 MG TABLET.DR PO SCH (06:09)
[2021-08-29 07:30] VITALS: BP 157/85
[2021-08-29] MEDS: DICYCLOMINE HCL 20 MG TABLET PO SCH ×3 (08:20→16:54)
[2021-08-29] MEDS: FLUOXETINE HCL 20 MG CAPSULE PO SCH (08:20)
[2021-08-29] MEDS: ASPIRIN 81 MG TAB.CHEW PO SCH (08:23)
[2021-08-29] MEDS: hydrALAZINE HCL 50 MG TABLET PO SCH ×2 (08:25→20:27)
[2021-08-29] MEDS: ASCORBIC ACID 500 MG TABLET PO SCH (08:25)
[2021-08-29] MEDS: ARIPIPRAZOLE 2 MG TABLET PO SCH (08:25)
[2021-08-29] MEDS: OXYBUTYNIN CHLORIDE 5 MG TABLET PO SCH ×2 (08:25→16:54)
[2021-08-29] MEDS: MAGNESIUM OXIDE 400 MG TABLET PO SCH (08:26)
[2021-08-29] MEDS: FERROUS SULFATE 325 MG TABEC PO SCH (08:26)
[2021-08-29] MEDS: AMLODIPINE 10 MG TABLET PO SCH (08:28)
[2021-08-29] MEDS: FLUTICASONE PROP NASAL SPRAY 16 GM BOTTLE NS PRN (08:29)
[2021-08-29] MEDS: METOPROLOL TARTRATE 50 MG TABLET PO SCH (08:34)
[2021-08-29] MEDS: DOCUSATE SODIUM 100 MG CAPSULE PO SCH ×2 (08:43→16:54)
[2021-08-29] MEDS: MIRALAX 17 GM POWD.PACK PO SCH ×2 (08:43→16:54)
[2021-08-29 10:30] LABS: HEMATOCRIT 31.6 % (31.2-41.9); MEAN CORPUSCULAR HEMOGLOBIN 27.3 uug (24.7-32.8); MEAN CORPUSCULAR VOLUME 84.1 fL (75.5-95.3); PLATELET COUNT (AUTO) 197 K/uL (179-408)
[2021-08-29 10:52] LABS: ALANINE AMINOTRANSFERASE 19 U/L (14-59); ALKALINE PHOSPHATASE 105 U/L (50-136); ASPARTATE AMINOTRANSFERASE 10 U/L (15-37); BILIRUBIN,TOTAL 0.2 mg/dL (0.2-1.0); CARBON DIOXIDE 23 mmol/L (21-32); CHLORIDE 104 mmol/L (98-107); CREATINE KINASE, TOTAL 78 U/L (26-192); CREATININE 1.4 mg/dL (0.6-1.3); GLUCOSE 178 mg/dL (74-106); PHOSPHOROUS 2.9 mg/dL (2.5-4.9); POTASSIUM 3.9 mmol/L (3.5-5.1); TOTAL PROTEIN, SERUM 7.3 g/dL (6.4-8.2); UREA NITROGEN, BLOOD 24 mg/dL (7-18)
--- NOTE | 2021-08-29 16:04 | NUR ---
TRACIE Initial Discharge Note: Pt is a 76 year old female admitted to [facility] voluntarily. Per pt, she will return to her assisted living at [facility] [address] [place], [place] [address]JUSTYN [place]ado [id number] ([phone]) upon discharge. TRACIE will continue to work with pt, family and MD to ensure a safe and proper discharge plan.
--- NOTE | 2021-08-29 16:18 | NUR ---
Patient is doing well today in terms of strength and ability to get in and out of the wheelchair. No c/o pain so far this shift. The patient made a contract for safety with this ad copy writer and denies SI at this time.
[2021-08-29] MEDS: TRAMADOL HCL 50 MG TABLET PO PRN (16:56)
[2021-08-29 17:08] VITALS: BP 155/67
[2021-08-29] MEDS: MELATONIN 3 MG TABLET PO SCH (20:27)
[2021-08-29] MEDS: ATORVASTATIN 20 MG TABLET PO SCH (20:27)
[2021-08-29 20:36] VITALS: BP 138/68
[2021-08-29] MEDS: ACETAMINOPHEN 325 MG TABLET PO PRN (20:43)
[2021-08-29] MEDS: TEMAZEPAM 7.5 MG CAPSULE PO PRN (21:36)
[2021-08-30] MEDS: TRAMADOL HCL 50 MG TABLET PO PRN ×4 (05:34→16:23)
--- NOTE | 2021-08-30 06:16 | NUR ---
No behavioral issues identified during the shift. Denies SI. Patient is compliant with medications. PRN for sleeping given per patient request. Ultram PRN given for pain at the end of the shift. Safety measures maintained. Assisted with needs. No acute distress noted. Frequent visual checks done. will endorse to the next shift for continuity of care.
[2021-08-30] MEDS: PANTOPRAZOLE SODIUM 40 MG TABLET.DR PO SCH (06:33)
[2021-08-30 08:30] VITALS: BP 148/80
[2021-08-30] MEDS: OXYBUTYNIN CHLORIDE 5 MG TABLET PO SCH ×2 (08:38→16:22)
[2021-08-30] MEDS: DOCUSATE SODIUM 100 MG CAPSULE PO SCH ×2 (08:38→16:22)
[2021-08-30] MEDS: ASPIRIN 81 MG TAB.CHEW PO SCH (08:38)
[2021-08-30] MEDS: ASCORBIC ACID 500 MG TABLET PO SCH (08:38)
[2021-08-30] MEDS: DICYCLOMINE HCL 20 MG TABLET PO SCH ×3 (08:38→16:22)
[2021-08-30] MEDS: MAGNESIUM OXIDE 400 MG TABLET PO SCH (08:38)
[2021-08-30] MEDS: FLUOXETINE HCL 20 MG CAPSULE PO SCH (08:38)
[2021-08-30] MEDS: ARIPIPRAZOLE 2 MG TABLET PO SCH (08:38)
[2021-08-30] MEDS: hydrALAZINE HCL 50 MG TABLET PO SCH ×2 (08:39→21:07)
[2021-08-30] MEDS: METOPROLOL TARTRATE 50 MG TABLET PO SCH (08:39)
[2021-08-30] MEDS: AMLODIPINE 10 MG TABLET PO SCH (08:39)
[2021-08-30] MEDS: MIRALAX 17 GM POWD.PACK PO SCH ×2 (08:40→16:22)
[2021-08-30] MEDS: FERROUS SULFATE 325 MG TABEC PO SCH (08:43)
[2021-08-30 16:50] VITALS: BP 158/77
[2021-08-30 20:00] VITALS: BP 150/66
[2021-08-30] MEDS: ATORVASTATIN 20 MG TABLET PO SCH (21:07)
[2021-08-30] MEDS: MELATONIN 3 MG TABLET PO SCH (21:07)
[2021-08-30] MEDS: ACETAMINOPHEN 325 MG TABLET PO PRN (21:08)
[2021-08-31] MEDS: TRAMADOL HCL 50 MG TABLET PO PRN ×2 (05:37→13:36)
[2021-08-31] MEDS: PANTOPRAZOLE SODIUM 40 MG TABLET.DR PO SCH (06:12)
[2021-08-31] MEDS: MIRALAX 17 GM POWD.PACK PO SCH ×2 (08:41→16:31)
[2021-08-31] MEDS: FLUOXETINE HCL 20 MG CAPSULE PO SCH (08:42)
[2021-08-31] MEDS: DOCUSATE SODIUM 100 MG CAPSULE PO SCH ×2 (08:42→16:10)
[2021-08-31] MEDS: MAGNESIUM OXIDE 400 MG TABLET PO SCH (08:42)
[2021-08-31] MEDS: ASPIRIN 81 MG TAB.CHEW PO SCH (08:42)
[2021-08-31] MEDS: ASCORBIC ACID 500 MG TABLET PO SCH (08:42)
[2021-08-31] MEDS: FERROUS SULFATE 325 MG TABEC PO SCH (08:42)
[2021-08-31] MEDS: ARIPIPRAZOLE 2 MG TABLET PO SCH (08:42)
[2021-08-31] MEDS: DICYCLOMINE HCL 20 MG TABLET PO SCH ×3 (08:42→16:10)
[2021-08-31] MEDS: AMLODIPINE 10 MG TABLET PO SCH (08:43)
[2021-08-31] MEDS: hydrALAZINE HCL 50 MG TABLET PO SCH ×2 (08:43→20:22)
[2021-08-31] MEDS: OXYBUTYNIN CHLORIDE 5 MG TABLET PO SCH ×2 (08:47→16:10)
[2021-08-31] MEDS: METOPROLOL TARTRATE 50 MG TABLET PO SCH (08:47)
[2021-08-31 09:18] VITALS: BP 153/86
[2021-08-31 16:29] VITALS: BP 148/73
[2021-08-31] MEDS: ATORVASTATIN 20 MG TABLET PO SCH (20:21)
[2021-08-31] MEDS: LORAZEPAM 1 MG TABLET PO PRN (20:21)
[2021-08-31] MEDS: MELATONIN 3 MG TABLET PO SCH (20:21)
[2021-08-31 20:45] VITALS: BP 132/68
[2021-08-31] MEDS: MAG HYDROX/AL HYDROX/SIMETH 30 ML LIQUID UDC PO PRN (21:36)
--- NOTE | 2021-09-01 06:51 | NUR ---
NSG/GPS Patient had four episodes of diarrhea.
[2021-09-01] MEDS: TRAMADOL HCL 50 MG TABLET PO PRN ×2 (06:59→12:41)
[2021-09-01] MEDS: PANTOPRAZOLE SODIUM 40 MG TABLET.DR PO SCH (07:00)
[2021-09-01 07:48] VITALS: BP 145/80
[2021-09-01] MEDS: DOCUSATE SODIUM 100 MG CAPSULE PO SCH ×2 (09:00→17:00)
[2021-09-01] MEDS: MIRALAX 17 GM POWD.PACK PO SCH ×2 (09:00→17:00)
[2021-09-01] MEDS: MAGNESIUM OXIDE 400 MG TABLET PO SCH (09:44)
[2021-09-01] MEDS: ARIPIPRAZOLE 2 MG TABLET PO SCH (09:44)
[2021-09-01] MEDS: OXYBUTYNIN CHLORIDE 5 MG TABLET PO SCH ×2 (09:45→17:59)
[2021-09-01] MEDS: ASCORBIC ACID 500 MG TABLET PO SCH (09:45)
[2021-09-01] MEDS: FERROUS SULFATE 325 MG TABEC PO SCH (09:45)
[2021-09-01] MEDS: DICYCLOMINE HCL 20 MG TABLET PO SCH ×3 (09:45→17:59)
[2021-09-01] MEDS: FLUOXETINE HCL 20 MG CAPSULE PO SCH (09:45)
[2021-09-01] MEDS: ASPIRIN 81 MG TAB.CHEW PO SCH (09:45)
[2021-09-01] MEDS: hydrALAZINE HCL 50 MG TABLET PO SCH ×2 (09:46→21:00)
[2021-09-01] MEDS: AMLODIPINE 10 MG TABLET PO SCH (09:47)
[2021-09-01] MEDS: METOPROLOL TARTRATE 50 MG TABLET PO SCH (09:47)
[2021-09-01 16:09] VITALS: BP 128/68
[2021-09-01 18:06] LABS: A/G RATIO 0.7 (0.7-1.7); ALBUMIN 2.7 g/dL (2.9-4.4); ALPHA-1-GLOBULIN 0.3 g/dL (0.0-0.4); ALPHA-2-GLOBULIN 1.2 g/dL (0.4-1.0); GAMMA GLOBULIN 1.4 g/dL (0.4-1.8); GLOBULIN, TOTAL 3.9 g/dL (2.2-3.9); M-SPIKE Not Observed g/dL (Not Observed)
--- NOTE | 2021-09-01 18:25 | NUR ---
GPS: Nursing Notes: Destructive Behavior To Self: Patient is awake and responding to her name, cooperative with nursing care, compliant with her medications, denies SI/HI, verbally aria for safety, moving around on her w/c - able to self transfer, needs assistance with ADL's, unable to formulate a viable plan for self care, A/Ox4, continue to monitor for safety, continue with treatment plan.
[2021-09-01 20:33] VITALS: BP 138/62
[2021-09-01] MEDS: MELATONIN 3 MG TABLET PO SCH (21:00)
[2021-09-01] MEDS: ATORVASTATIN 20 MG TABLET PO SCH (21:00)
[2021-09-01] MEDS: TEMAZEPAM 7.5 MG CAPSULE PO PRN (22:34)
[2021-09-02] MEDS: TEMAZEPAM 7.5 MG CAPSULE PO PRN (00:32)
[2021-09-02] MEDS: TRAMADOL HCL 50 MG TABLET PO PRN ×2 (00:34→09:02)
[2021-09-02] MEDS: PANTOPRAZOLE SODIUM 40 MG TABLET.DR PO SCH (07:55)
[2021-09-02 08:10] VITALS: BP 139/70
[2021-09-02] MEDS: hydrALAZINE HCL 50 MG TABLET PO SCH (08:42)
[2021-09-02] MEDS: MAGNESIUM OXIDE 400 MG TABLET PO SCH (08:42)
[2021-09-02] MEDS: DOCUSATE SODIUM 100 MG CAPSULE PO SCH (08:42)
[2021-09-02] MEDS: ASCORBIC ACID 500 MG TABLET PO SCH (08:42)
[2021-09-02] MEDS: FERROUS SULFATE 325 MG TABEC PO SCH (08:43)
[2021-09-02] MEDS: ARIPIPRAZOLE 2 MG TABLET PO SCH (08:43)
[2021-09-02] MEDS: METOPROLOL TARTRATE 50 MG TABLET PO SCH (08:43)
[2021-09-02 08:44] VITALS: BP 139/70
[2021-09-02] MEDS: OXYBUTYNIN CHLORIDE 5 MG TABLET PO SCH (08:44)
[2021-09-02] MEDS: AMLODIPINE 10 MG TABLET PO SCH (08:44)
[2021-09-02] MEDS: ASPIRIN 81 MG TAB.CHEW PO SCH (08:44)
[2021-09-02] MEDS: DICYCLOMINE HCL 20 MG TABLET PO SCH (08:44)
[2021-09-02] MEDS: MIRALAX 17 GM POWD.PACK PO SCH (08:44)
[2021-09-02] MEDS: FLUOXETINE HCL 20 MG CAPSULE PO SCH (08:45)
--- NOTE | 2021-09-02 09:27 | NUR ---
TRACIE Discharge Note: Pt will be discharged to [facility] ([phone]) [address] [place] [address] via Ambulance transportation at 11AM. TRACIE spoke with admin coordinator at the facility who states they are ready to accept the patient today. Pt is aware and agreeable with discharge plans. TRACIE left a voicemail for pts sister, Geoffrey ([phone]) regarding the discharge plan back to her assisted living. Pt is alert and oriented x4, is unable to plan for self-care at this time; however, is willing to accept care at SNF. Pt denies any suicidal or homicidal ideation. Pt will follow-up with Psychiatrist, Dr. Liao and Glycerine Plant Operator, Dr. Amin at the facility. Pt presents with calm mood and congruent affect.
--- NOTE | 2021-09-02 10:27 | NUR ---
GPS: PT ALERT AND ORIENTED. EXCITED FOR DISCHARGE. DENIES ANY KOFI CIDAL/HOMICIDAL IDEATION. Denied auditory hallucination or delusion. PT COMPLIANT WITH CARE AND MEDS. ABLE TO MAKE NEEDS KNOWN. CALLED [facility] FOR ADMISSION REPORT. NO ONE ANSWERED, LEFT VOICEMAIL MESSAGE. ALL BELONGINGS GIVEN AND DISCHARGE PAPERS SIGNED BY PT.
--- NOTE | 2021-09-02 11:49 | NUR ---
PT WAS DISCHARGE FROM THE HOSPITAL PICKED UP BY AMBULANCE. PT COOPERATIVE AND NO AGITATION NOTED
== END 2021-09-02 12:24 | DRG 885 ==
LOC: GPS 13:56
PROVIDERS: ADMIT Psychiatry & Neurology Psychiatry; ATTEND Registered Nurse
DX: F33.2 Major depressive disorder, recurrent severe without psychotic features (principal); N17.9 Acute kidney failure, unspecified; N18.9 Chronic kidney disease, unspecified; D68.59 Other primary thrombophilia; K50.90 Crohn's disease, unspecified, without complications; I50.32 Chronic diastolic (congestive) heart failure; I13.0 Hypertensive heart and chronic kidney disease with heart failure and stage 1 through stage 4 chronic kidney disease, or unspecified chronic kidney disease; Z68.41 Body mass index [BMI] 40.0-44.9, adult; E44.1 Mild protein-calorie malnutrition; E66.01 Morbid (severe) obesity due to excess calories; M79.7 Fibromyalgia; E78.5 Hyperlipidemia, unspecified; K21.9 Gastro-esophageal reflux disease without esophagitis; F29 Unspecified psychosis not due to a substance or known physiological condition; S61.412A Laceration without foreign body of left hand, initial encounter; X78.8XXA Intentional self-harm by other sharp object, initial encounter; Y93.9 Activity, unspecified; Y92.89 Other specified places as the place of occurrence of the external cause; M19.90 Unspecified osteoarthritis, unspecified site; G89.4 Chronic pain syndrome; Z59.9 Problem related to housing and economic circumstances, unspecified; Z87.442 Personal history of urinary calculi; G25.81 Restless legs syndrome; Z74.09 Other reduced mobility; F60.3 Borderline personality disorder; N32.81 Overactive bladder; F20.9 Schizophrenia, unspecified; Z86.79 Personal history of other diseases of the circulatory system; Z20.822 Contact with and (suspected) exposure to COVID-19
CPT/HCPCS: 36415; 83735; 83970; 84100; 84155; 84156; 84165; 84300; 85025; 93005; 97161; J3535